=== PATIENT | female | born 1945 | race Caucasian/White ===

== ENCOUNTER 2021-08-16 08:51 | Outpatient (CLI) | payer OTHER, SELFPAY ==
--- NOTE | ~2021-08-16 | PE_ITS ---
EXAMINATION: PET skull to mid thigh DATE: 08/16/2021 11:00 INDICATION: Solitary pulmonary nodule TECHNIQUE: Blood glucose level was 115 mg/dL. 7.74 mCi of 18-fluorodeoxyglucose (18-FDG) was administ ered i.v. Low dose computed tomography (CT) images were acquired from the base of the brain to the pr oximal thighs for attenuation correction and anatomic localization. Positron emission tomography (PET ) images were acquired in the same distribution beginning 75 minutes after injection. Images includin g fused PET/CT images were reconstructed in axial, coronal, and sagittal planes. Automated exposure c ontrol technique was employed. The dose-length product was 684.25mGy-cm. COMPARISON: None FINDINGS: Head/neck: There is symmetric increased activity in the oral cavity, palatine tonsils, paraspinal musculature at the craniocervical junction, laryngeal muscles and ocular muscles without CT correlate, likely physi ologic. No pathologically enlarged cervical lymphadenopathy or suspicious foci of increased FDG uptak e in the visualized head or neck. Atherosclerotic calcification is at the bilateral carotid bulbs. Chest: Respiratory motion and mild dependent atelectasis in the bilateral lower lobes. There is an approxima tely 1 cm calcified right lower lobe nodule consistent with old granulomatous disease. No other suspi cious pulmonary nodules, pneumonia or pleural effusion. Heart size is normal. Atherosclerotic coronar y artery calcification. No pericardial effusion. Thoracic aorta is normal in caliber. No pathological ly enlarged or FDG avid thoracic lymphadenopathy. Diffuse mild increased synovial FDG uptake at the b ilateral glenohumeral joints without radiologic correlate which is likely physiologic. Moderate uptak e throughout the bilateral infraspinatus muscles and mild uptake involving additional musculature in the bilateral arms and hands also without radiologic correlate and likely physiologic. Abdomen/pelvis/proximal thighs: Physiologic renal accumulation and excretion of FDG activity in the kidneys, bladder and along portio ns of ureters. Multiple small splenic calcifications and single hepatic calcification consistent with old granulomatous disease. Normal degree and heterogenous pattern of increased uptake throughout the liver without radiologic correlate or dominant FDG avid lesion. Small calcified gallstone in the dep endent aspect of the otherwise normal gallbladder. The pancreas and right adrenal gland are normal. 1 2 mm low-attenuation left adrenal nodule without increased FDG uptake consistent with an adenoma. Pos toperative change of prior right hemicolectomy with right lower quadrant ileocolic anastomosis. Moder ate uptake scattered throughout the bowels without radiologic correlate, also likely physiologic. The uterus is not identified and has likely been surgically resected. Mild uptake overlying the bilatera l greater trochanters consistent with mild trochanteric bursitis. No other abnormal foci of increased FDG uptake or pathologically enlarged lymphadenopathy in the abdomen, pelvis or proximal thighs. Musculoskeletal: Old healed proximal left femoral fracture with antegrade intramedullary rhina and femoral neck compress ion screw fixation. 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 Severe lower cervical and lumbosacral spondylosis with moderate spondylosis of the intervening thoracic and lumbar spine. No aguilera spicious lytic, blastic or FDG avid bone lesions. IMPRESSION: 1. 1 cm calcified right lower lobe nodule consistent with old granulomatous disease. No other pulmona ry nodules identified or lesions suspicious for metastatic disease 2. Cholelithiasis. Reviewed, dictated and finalized at location B. Electr
[2021-08-16 09:22] LABS: Glucose Point of Care 115 mg/dl (65-105)
== END 2021-08-16 08:52 | disposition home or self-care (01) ==
PROVIDERS: PCP Internal Medicine; Visit Provider Internal Medicine
DX: R91.1 Solitary pulmonary nodule (principal); K80.20 Calculus of gallbladder without cholecystitis without obstruction
CPT/HCPCS: 78815; A9552

== ENCOUNTER 2023-05-01 11:56 | Outpatient (CLI) | payer OTHER, SELFPAY ==
--- NOTE | ~2023-05-01 | XR_ITS ---
Lumbosacral Spine: AP and lateral views, with neutral, flexion, extension positioning Clinical History: Pain Findings: The normal lordotic curve is maintained. Severe compression fracture deformity of L1 presen t. No instability evident on flexion or extension. There is advanced degenerative disc narrowing at L 5-S1. The remaining intervertebral disc spaces are preserved. Moderate facet arthropathy present thro ughout the lumbar spine. The sacroiliac joints are normally outlined. Impression: Severe compression fracture deformity of L1. This is new since 06/10/2022. Reviewed, dictated and finalized at location M. ICULTURAL SERVICES SUPERVISOR Impression: Severe compression fracture deformity of L1. This is new since 06/10/2022.
== END 2023-05-01 11:57 | disposition home or self-care (01) ==
LOC: ANHIMG 11:58
PROVIDERS: PCP Internal Medicine; Visit Provider Neurological Surgery
DX: S32.010A Wedge compression fracture of first lumbar vertebra, initial encounter for closed fracture (principal); X58.XXXA Exposure to other specified factors, initial encounter
CPT/HCPCS: 72110

== ENCOUNTER 2023-08-26 08:54 | Outpatient (CLI) | payer OTHER, SELFPAY ==
--- NOTE | ~2023-08-26 | PE_ITS ---
EXAMINATION: PET skull to mid thigh DATE: 08/26/2023 10:45 INDICATION: Squamous cell carcinoma TECHNIQUE: Blood glucose level was 93 mg/dL. 10.891 mCi of 18-fluorodeoxyglucose (18-FDG) was adminis tered i.v. Low dose computed tomography (CT) images were acquired from the base of the brain to the p roximal thighs for attenuation correction and anatomic localization. Positron emission tomography (PE T) images were acquired in the same distribution beginning 54 minutes after injection. Images includi ng fused PET/CT images were reconstructed in axial, coronal, and sagittal planes. Automated exposure control technique was employed. The dose-length product was 802.40mGy-cm. COMPARISON: 08/16/2021 and 06/10/2022 FINDINGS: Head/neck: Small focus of mild increased uptake with maximal SUV of 4.7 associated with a new periapical lucency surrounding the single remaining tooth at the left mandible. There is otherwise relatively symmetric increased activity in the oral cavity, palatine tonsils, laryngeal muscles and ocular muscles withou t CT correlate, likely physiologic. Prominent atherosclerotic calcification is at the bilateral carot id bulbs. No pathologically enlarged cervical lymphadenopathy or suspicious foci of increased FDG upt roberto in the visualized head or neck. Chest: Postoperative change of interval right lower lobectomy. Bandlike consolidation along a linear suture line which is without significant increased FDG uptake with maximal SUV of 2.3 most likely residual p ostoperative scarring. Ill-defined ground glass opacity in the anterior segment of the right upper lo be along the minor fissure also without significant increased FDG uptake with maximal SUV of 2.1 whic h appears relatively linear and reconstructed sagittal and coronal images and favor discoid atelectas is over pneumonia or other inflammatory process. Mild dependent atelectasis in the left lower lobe. N o FDG avid pulmonary nodules or pleural effusion. Heart size normal. Atherosclerotic coronary artery calcifications. No pericardial effusion. Thoracic aorta is normal in caliber. There is diffuse mild likely physiologic uptake along the normal-appearin g esophagus. No pathologically enlarged or FDG avid thoracic lymphadenopathy. Mild likely synovial u ptake about the bilateral glenohumeral and acromioclavicular joints as well as at the right sternocla vicular joint. There is also mild uptake at the bilateral distal gluteus medius minimus tendons. Ther e are old fracture deformities of the anterior right second and third ribs with mild uptake associate d with a more recent-appearing healing fracture at the anterior right third rib. Old fracture deformi ty left humeral neck. Small focus of mild likely physiologic uptake at the right trapezius muscle wit hout radiologic correlate. Abdomen/pelvis/proximal thighs: Physiologic renal accumulation and excretion of FDG activity in the kidneys, bladder and along portio ns of ureters. Normal degree and heterogenous pattern of increased uptake throughout the liver withou t radiologic correlate or dominant FDG avid lesion. Scattered hepatic and splenic calcific lesions co nsistent with old granulomatous disease. Small calcified gallstone in the dependent aspect of the oth erwise normal-appearing gallbladder. The pancreas and bilateral adrenal glands are normal. Mild uptak e scattered throughout the bowels without radiologic correlate, also likely physiologic. Postoperativ e change of right hemicolectomy with ileocolic anastomosis in the right abdomen. The uterus is not id entified and has likely been surgically resected. Old healed internally fixed intertrochanteric fract ure the proximal left femur with antegrade intramedullary rhina and femoral neck compression screw fixa tion. There is mild likely physiologic muscular uptake in the lumbar paraspinal muscles and in the mu scles at the bilateral forearms and at the left hand. Chronic L1 bur
[2023-08-26 09:20] LABS: Glucose Point of Care 93 mg/dl (65-105)
== END 2023-08-26 08:55 | disposition home or self-care (01) ==
PROVIDERS: PCP Internal Medicine; Visit Provider Internal Medicine Pulmonary Disease
DX: C34.90 Malignant neoplasm of unspecified part of unspecified bronchus or lung (principal)
CPT/HCPCS: 78815; A9552

== ENCOUNTER 2025-02-14 10:11 | Observation (INO) | payer OTHER, SELFPAY ==
--- NOTE | ~2025-02-14 | NM_ITS ---
EXAMINATION: NM bone scan whole body DATE: 02/16/2025 12:01 INDICATION: Painful right knee TECHNIQUE: 27.4 mCi Tc-99m MDP was administered intravenously. Delayed whole- body scintigrams were obtained. COMPARISON: Right knee radiographs dated 02/14/2025 and 05/01/2023 FINDINGS: There is increased uptake such with a T12 burst fracture as seen on the prior radiograph. Mild uptake such with old healed intertrochanteric fracture of the proximal left femur. Small focus of mild uptake along the superolateral aspect of the right hip joint which may be related to mild to moderate osteoarthritis of the right hip with chondrocalcinosis along the humeral head and labrum. Additional likely degenerative joint centered uptake at the left knee and at the bilateral ankles. Photopenic defect associated with a right total knee arthroplasty with prominent increased uptake underlying the lateral tibial plateau suspicious for loosening. There does appear to be corresponding increased lucency consistent with osteolysis at the bone cement interface underlying the lateral tibial plateau. Small focus of mild uptake at the superomedial rim of the left orbit. On prior PET/CT studies there appears to be a chronic sclerotic lesion which remained unchanged between 201905/06/2023 and which was without associated increased FDG uptake on the PET portion of the imaging favoring a benign etiology such as osteoma, fibrous dysplasia or hyperostosis frontalis. No other bone lesions suspicious for metastatic disease. IMPRESSION: 1. Right total knee arthroplasties with increased uptake underlying the lateral tibial plateau where there is increased lucency at the bone cement interface on prior radiographs consistent with osteolysis and loosening. 2. Mild uptake associated with a chronic T12 burst fracture. 3. Small focus of increased uptake at the superomedial left orbital rim region of a small sclerotic bone lesion which remained unchanged in the interval between 2021 and 2023 with no abnormal FDG uptake and favor a benign etiology such as osteoma, fibrous dysplasia or hyperostosis frontalis over metastatic disease. No other lesions suspicious for metastatic disease. Reviewed, dictated and finalized at location A. E ORTHO IMPRESSION: 1. Right total knee arthroplasties with increased uptake underlying the lateral tibial plateau where there is increased lucency at the bone cement interface o n prior radiographs consistent with osteolysis and loosening. 2. Mild uptake associated with a chronic T12 burst fracture. 3. Small focus of increased uptake at the superomedial left orbital rim region of a small sclerotic bone lesion which remained unchanged in the interval betwe en 2021 and 2023 with no abnormal FDG uptake and favor a benign etiology such a s osteoma, fibrous dysplasia or hyperostosis frontalis over metastatic disease. No other lesions suspicious for metastatic disease.
--- NOTE | ~2025-02-14 | XR_ITS ---
EXAMINATION: XR hip RT 2V w AP pelvis, 02/15/2025 10:00 HOSPITAL MEDICINE DIRECTOR HISTORY: NO RECENT TRAUMA/UNABLE TO WALK COMPARISON: No comparisons available. Findings: Fixation left femur, the hardware is intact, no acute fracture. Severe degenerative changes. Soft tissues unremarkable. Impression: No acute fracture or malalignment. Reviewed, dictated and finalized at location P. ITAL MEDICINE DIRECTOR Impression: No acute fracture or malalignment.
--- NOTE | ~2025-02-14 | XR_ITS ---
EXAMINATION: XR knee RT 3V, 02/14/2025 13:55 WORKSITE WELLNESS PRACTITIONER HISTORY: knee pain, atraumatic COMPARISON: No comparisons available. Findings: No acute fracture or malalignment. Arthroplasty intact Soft tissues unremarkable. Impression: No acute fracture or malalignment. Reviewed, dictated and finalized at location P. SITE WELLNESS PRACTITIONER Impression: No acute fracture or malalignment.
--- NOTE | ~2025-02-14 | US_ITS ---
EXAMINATION: US knee asp inj w image RT DATE: 02/16/2025 16:18 INDICATION: Right knee pain TECHNIQUE: The procedure including the risks and benefits was discussed with the patient. Risks discussed included bleeding and infection. The patient understood the risks and agreed to proceed. The skin overlying the suprapatellar pouch of the right knee was prepped and draped in usual sterile fashion. Anesthetic was administered with 1% lidocaine subcutaneously. A 22 gauge spinal needle was advanced under continuous ultrasound observation to what appear to be a potential trace amount of fluid at 2 separate locations of bony cephalad portion of the femoral component of the knee arthroplasty. No fluid was able to be aspirated. The needle was removed and the entry site was cleaned and dressed. Post procedure ultrasound demonstrated no hemorrhage. FINDINGS: Ultrasound images demonstrate needle tip position within 2 separate small anechoic regions along the femoral component of a right total knee arthroplasty. Attempted aspiration yielded no fluid suggesting the regions V contained synovium with no joint effusion. IMPRESSION: 1. No evident joint effusion with unsuccessful attempt at aspiration at 2 separate sites of potential trace amount of fluid. Reviewed, dictated and finalized at location A. NCE AND OPERATIONS OFFICER IMPRESSION: 1. No evident joint effusion with unsuccessful attempt at aspiration at 2 separ ate sites of potential trace amount of fluid.
[2025-02-14 10:13] VITALS: BP 181/71; PULSE 72; RESP 16; TEMP 36.4; O2SAT 100
--- OUTSIDE RECORDS SUMMARY | 2025-02-14 11:24 | XMS_ITS | Clinical Summary ---
Author Organization [facility] Zoltan baldwin [facility] Address [address] [place] [address] [place] [address] Care Team Providers Care Office Machine Installer Name Role Phone Unavailable Primary Care Provider Unavailabl e Allergies No known active allergies Medications denosumab (Prolia) 60 mg/mL Syringe inject 1ml subcutaneously every 6 months 1 mL 1 2 Active Social History Tobacco Use Types Packs/Day Years Used Date Smoking Tobacco: Never Assessed Comments Unknown Sex and Gender Information Value Date Recorded Sex Assigned at Not on file Legal Sex Female 1:38 PM CDT Gender Identity Not on file Sexual Orientation Not on file Plan of Treatment Health Maintenance Due Date Last Done Comments DTAP/TDAP/TD VACCINES (1 - Tdap) 05/25/1962 PNEUMOCOCCAL VACCINE 50+ YEARS (1 of 1 - PCV) 05/25/18 94 ZOSTER VACCINE (1 of 2) 05/25/1993 OSTEOPOROSIS SCREENING 05/25/2008 RSV VACCINE (60+ or ) (1 - 1-dose 75+ series) 05/25/2018 INFLUENZA VACCINE (#1) 2024 Insurance RX [facility] [employer]
--- OUTSIDE RECORDS SUMMARY | 2025-02-14 11:24 | XMS_ITS | Clinical Summary ---
Author Organization [facility] Address [address] [place] [id number] Care Team Providers Care Drywall Finisher Foreman Name Role Phone Perico Rhodes MD Primary Care Provider [phone] Sincere Martinez MD Unavailable [phone] Chi Cassidy MD Unavailable [phone] Luther Arshad MD Unavailable Allergies Active Allergy Reactions Criticality Noted Date Comments Sulfa (Sulfonamide Antibiotics) Unknown 11/2019 Medications simvastatin (ZOCOR) 40 mg tablet TK 1 T PO QD 0 Active oxybutynin XL (DITROPAN-XL) 10 mg 24 hr tablet TK 1 T PO QD 0 Active metFORMIN XR (GLUCOPHAGE XR) 500 mg 24 hr tablet TK 1 T PO BID B MEALS 0 Active hydroCHLOROthia zide (MICROZIDE) 12.5 mg capsule TK ONE C PO QAM 0 Active aspirin 81 mg enteric coated tablet Take 81 mg by mouth daily Active travoprost (TRAVATAN Z) 0.004 % drops 1 drop Active timolol (TIMOPTIC) 0.5 % ophthalmic solution 1 drop 2 (two) times a day Active Trelegy Ellipta 100-62.5-25 mcg inhaler INHALE 1 PUFF BY MOUTH EVERY DAY 1 Active denosumab (Prolia) 60 mg/mL syringe Prolia 60 mg/mL subcutaneous syringe Active Active Problems Problem Noted Date Diagnosed Date Iron deficiency 10/03/2020 Iron deficiency anemia 09/28/2020 Osteoarthritis of knee 09/28/2019 Closed Colles' fracture 09/28/2019 Closed intertrochanteric fracture 09/28/2019 Coronary arteriosclerosis 09/28/2019 Encounter for orthopedic follow-up care 09/28/19 20 Fracture of forearm 09/28/2019 Hyperlipidemia 09/28/2019 Osteoporosis 09/28/2019 H/O screening mammography 09/28/2019 Pneumococcal vaccination given 09/28/2019 Vitamin D deficiency 09/28/2019 Sprain of ankle 09/28/2019 Anemia 05/18/2019 Solitary pulmonary nodule 04/07/2019 Pulmonary emphysema 06/03/2018 Peripheral arterial occlusive disease 12/31/2017 Overactive bladder 11/06/2017 Other chronic pain 01/08/2017 Pain in left hip 01/08/2017 Pain in right knee 01/08/2017 Hypercalcemia 09/24/2016 Hyperglycemia 09/24/2016 Encounter for screening colonoscopy 09/24/2016 Essential hypertension 06/06/2016 Malignant neoplasm of colon 01/05/2015 Cancer Staging:Clinical stage from 04/01/2020:Stage IIA(T3, N0, M0) - Signed by Chi Cassidy MD on 04/01/2020 Immunizations Immunization Administration Dates Next Due DTaP 08/02/2008 Influenza, Quadrivalent, Hig h Dose, Preservative Free, Intrr 12/22/2020 Influenza, Quadrivalent, Spl it, Intramuscular 01/11/2016 Influenza, Trivalent, High D ose, Split, Preservative Free, Intramuscular 12/08/2019,01/12/2019,01/01/2018,01/30,01/14/2012,01/09/2011,12/29/2009 Influenza, Trivalent, IM (MDV) 12/23/2014 Influenza, Trivalent, Preser vative Free, Intramuscular 02/17/2014,12/23/2012 Moderna SARS-CoV-2 Monovalen t Vaccination (12+ YRS) 01/22/2021,06/06/2020,05/09/2020 Pneumococcal Conjugate PCV 13 01/23/2016 Pneumococcal Polysaccharide PPV23 09/13/2010 Surgical History Surgery Date Site/Laterality Comments HYSTERECTOMY COLON SURGERY COLONOSCOPY 09/24/2016 CATARACT EXTRACTION TOTAL KNEE ARTHROPLASTY 07/12/2020 Right Medical History Medical History Date Comments Hypertension Hypercholesteremia Anemia Cancer (HCC) Iron deficiency anemia 09/28/2020 Family History Medical History Relation Name Comments Stroke Father Heart attack Mother Relation Name Status Comments Father Mother Social History Tobacco Use Types Packs/Day Years Used Date Smoking Tobacco: Former Cigarettes 0.1 50 1 960 - 2009 Smokeless Tobacco: Never Comments:Smokes once a month 03/30/20 or less Alcohol Use Standard Drinks/Week Comments Yes 0 (1 standard drink = 0.6 oz pur e alcohol) AUDIT-C Answer Date Recorded Q1: How often do you have a drink containing alc ohol? 2-3 times a week 03/29/2021 Q2: How many drinks containi ng alcohol do you have on a typical day when you are drinking? 1 or 2 03/29/2021 Q3: How often do you have si x or more drinks on one occasion? Never 03/29/2021 Personal Safety Answer Date Recorded Getting School Help Needed Not on file 05/26 Comments Unknown Sex and Gender Information Value Date Recorded Sex Assigned at Not on file Legal Sex Female 12:56 PM DEWER Gender Identity Not on file Sexual Orientation Not on file Last Filed Vital Signs Vital Sign Reading Time Taken Comments Blood Pressure 116/74 03/29/2021 11:17 AM DEWER Pulse 76 03/29/2021 11:17 AM DEWER Temperature 37 C (98.6 F) 03/29/2021 11:17 AM DEWER Respiratory Rate 16 03/29/2021 11:17 AM DEWER Oxygen Saturation 98% 03/29/2021 11:17 AM DEWER Inhaled Oxygen Concentration - - Weight 77.1 kg (170 lb) 03/29/2021 11:17 AM DEWER Height 170.2 cm (5' 7) 03/29/2021 11:17 AM DEWER Body Mass Index 26.63 03/29/2021 11:17 AM DEWER Plan of Treatment Not on file Insurance [facility] [id number] [place] [address] [facility] [id number] Care Teams Drywall Finisher Foreman Relationship Specialty Start Date End Date Perico Rhodes MD PCP - General Internal Medicine 05/12/19 Sincere Martinez MD Consulting Physician Gastroenterology 05/24/19 Chi Cassidy MD Medical Oncologist/Hematologis t Hematology and Oncology 06/16/19 Luther Arshad MD Consulting Physician Cardiovascular Disease 03/30/20
--- OUTSIDE RECORDS SUMMARY | 2025-02-14 11:24 | XMS_ITS | Clinical Summary ---
Author Organization [facility] Address [address] [place] [address] Care Team Providers Care Seam Closer Name Role Phone Perico Rhodes MD Primary Care Provider [phone] [facility],non-owned Affiliates and Associated Physician Practices is amultiple site organization consisting of ambulatory clinics and hospital sitesin [place], [place], [place]. This disclosure is being madepursuant to the Care Everywhere program and may not contain all information available regarding this patient. Last updated 17.[facility] Allergies Active Allergy Reactions Criticality Noted Date Comments Sulfa Drugs Unknown 05/24/2019 Medications * Be aware that medications may not be up to date on this document. Alwaysverify current medications with the patient. simvastatin (ZOCOR) 40 MG tablet Take 1 (one) tablet by mouth at bedtime 0 09/05/2016 Active timolol maleate (Timoptic) 0.5 % ophthalmic solution Instill 1 (one) drop into both eyes 2 times daily Active oxyBUTYnin CR 24hr (Ditropan-XL) 10 MG tablet Take 1 (one) tablet by mouth once daily 07/27/2022 Active metFORMIN ER 24hr (Glucophage XR) 500 MG tablet Take 1 (one) tablet by mouth every morning 10/07/2021 Active Breo Ellipta 100-25 MCG/ACT inhaler Inhale 1 (one) puff by mouth once daily 06/12/2022 Active aspirin EC (Ecotrin) 81 MG tablet Take 1 (one) tablet by mouth once daily Active albuterol HFA (Proventil; Ventolin; Proair) 108 (90 Base) MCG/ACT inhaler Take 1 (one) puff by mouth every 4 hours as needed 06/12/2022 Active Cholecalciferol (Vitamin D3) 1.25 MG (00190 UT) TABS Take 1.25 tablets by mouth once daily Active travoprost, EBONIE free, (Travatan Z) 0.004 % ophthalmic solution Instill 1 (one) drop into both eyes at bedtime Active Active Problems Problem Noted Date Diagnosed Date Pulmonary nodule 08/28/2022 Pain in right knee 01/08/2017 Other chronic pain 01/08/2017 Pain in left hip 01/08/2017 Immunizations Immunization Administration Dates Next Due INFLUENZA VACCINE, HIGH-DOSE , QUADR. (FLUZONE HIGH-DOSE QUADRIVALENT; 65Y+), 0.7 ML (HD-IIV4) 12/08/2019 Social History Tobacco Use Types Packs/Day Years Used Date Smoking Tobacco: Some Days Cigarettes 2 50 Smokeless Tobacco: Former Tobacco Cessation:Ready to Q uit: Not Asked; Counseling Given: Not Answered Alcohol Use Standard Drinks/Week Comments Yes 0 (1 standard drink = 0.6 oz pur e alcohol) 2 times per week AUDIT-C Answer Date Recorded Q1: How often do you have a drink containing alcohol? Never 09/03/2022 Q2: How many drinks containi ng alcohol do you have on a typical day when you are drinking? Patient does not drink Frequency of Binge Drinking Not on file 08/16 Overall Financial Resource Strain (CARDIA) Answe r Date Recorded How hard is it for you to pa y for the very basics like food, housing, medical care, and heating? Not hard at all 09/03/2022 [facility] [place] [facility] - Occupational Stress Questionnaire Answer Date Recorded Do you feel stress - tense, restless, nervous, or anxious, or unable to sleep at night because your mind is troubled all the time - these days? Not at all 09/03/2022 Hunger Vital Sign Answer Date Recorded Within the past 12 months, y ou worried that your food would run out before you got the money to buy more. Never true 09/04/19 Within the past 12 months, t he food you bought just didn't last and you didn't have money to get more. Never true 09/03/2022 PRAPARE - Transportation Answer Date Re corded In the past 12 months, has l ack of transportation kept you from medical appointments or from getting medications? No 08/16 In the past 12 months, has l ack of transportation kept you from meetings, work, or from getting things needed for daily living? No 09/03/2022 Housing Stability Vital Sign Answer Aren e Recorded In the last 12 months, was t here a time when you were not able to pay the mortgage or rent on time? No 09/03/2022 Number of Places Lived in the Last Year Not on f ile 09/03/2022 In the last 12 months, was t here a time when you did not have a steady place to sleep or slept in a fci (including now)? No 09/03/2022 Comments No Sex and Gender Information Value Date Recorded Sex Assigned at Not on file Legal Sex Female 5:22 PM BLINDSTITCH HEMMER Gender Identity Not on file Sexual Orientation Not on file Last Filed Vital Signs Vital Sign Reading Time Taken Comments Blood Pressure 144/83 11/07/2022 9:57 AM CDT Pulse 76 11/07/2022 9:57 AM CDT Temperature 37 C (98.6 F) 11/07/2022 9:57 AM CDT Respiratory Rate 18 09/05/2022 12:54 PM CDT Oxygen Saturation 98% 11/07/2022 9:57 AM CDT Inhaled Oxygen Concentration - - Weight 69.4 kg (153 lb) 11/07/2022 9:57 AM CDT Height 167.6 cm (5' 6) 11/07/2022 9:57 AM CDT Body Mass Index 24.69 11/07/2022 9:57 AM CDT Plan of Treatment Health Maintenance Due Date Last Done Comments BONE DENSITY TESTING 1943 DTAP/TDAP/TD VACCINES (1 - Tdap) 05/25/1962 PNEUMOCOCCAL VACCINE 50+ (1 of 2 - PCV) 05/25/1962 ZOSTER VACCINE (1 of 2) 05/25/1993 Respiratory Syncytial Virus (RSV) Vaccine Pt: or over 60 yrs (1 - 1-dose 75+ series) 05/25/2018 DEPRESSION SCREENING 03/17/2024 COVID-19 VACCINE ( - season) 2024 08/06/2021, 01/22/2021, 06/06/2020, Additional history exists INFLUENZA VACCINE (#1) 2024 , 01/12/2019, 01/01/2018, Additional history exists HEPATITIS B VACCINE Aged Out No longe r eligible based on patient's age to complete this topic HIB VACCINE Aged Out No longer eligi ble based on patient's age to complete this topic HPV VACCINE Aged Out No longer eligi ble based on patient's age to complete this topic MENINGOCOCCAL (Group B) VACCINE SHARED DECISION-MAKING Aged Out No longer eligible based on patient's age to complete this topic MENINGOCOCCAL GROUPS A/C/Y/W VACCINE Aged Out No longer eligible based on patient's age to complete this topic Insurance [facility] Address: [facility] [id number] [place] [address] Advance Directives * Full Code (Latest Code Status on File) Date Activated Date Inactivated Comments 09/03/2022 7:12 PM 09/05/2022 2:58 PM Care Teams Seam Closer Relationship Specialty Start Date End Date Perico Rhodes MD [address] [facility] [address] [place] [address] PCP - General 09/18/16
--- OUTSIDE RECORDS SUMMARY | 2025-02-14 11:24 | XMS_ITS ---
Author Organization [facility] Address [address] [place] [id number] Care Team Providers Care Race Car Driver Name Role Phone Perico Rhodes MD Primary Care Provider Sincere Martinez MD Unavailable [phone] Chi Cassidy MD Unavailable [phone] Luther Arshad MD Unavailable Active Problems Problem Noted Date Diagnosed Date Iron deficiency 10/03/2020 Iron deficiency anemia 09/28/2020 Osteoarthritis of knee 09/28/2019 Closed Colles' fracture 09/28/2019 Closed intertrochanteric fracture 09/28/2019 Coronary arteriosclerosis 09/28/2019 Encounter for orthopedic follow-up care 09/28/19 Fracture of forearm 09/28/2019 Hyperlipidemia 09/28/2019 Osteoporosis [...] Signed by Chi Cassidy MD on 04/01/2020 Current Treatment and Therapy Plans No current plan information found. Past Treatment and Therapy Plans
--- OUTSIDE RECORDS SUMMARY | 2025-02-14 11:24 | XMS_ITS | Encounter Summary ---
Author Organization [facility] Address [address] [place] [address] Phone Care Team Providers Care Supervisor Fabrication Name Role Phone Perico Rhodes MD Primary Care Provider Sincere Martinez MD Unavailable [phone] Chi Cassidy MD Unavailable [phone] Luther Arshad MD Unavailable Encounter Details Date Type Department Care Team (Latest Contact Info) Description 05/23/2022 Orders Only [facility] Scanning, Provider Social History Tobacco Use Types Packs/Day Years Used Date Smoking Tobacco: Former Cigarettes 0.1 50 1 960 - 2010 Smokeless Tobacco: Never Comments:Smokes once a month [...] more drinks on one occasion? Never 03/29/2021 Comments Unknown Sex and Gender Information Value Date Recorded Sex Assigned at Not on file Legal Sex Female 12:56 PM CONCIERGE MANAGER Gender Identity Not on file Sexual Orientation Not on file documented as of this encounter Plan of Treatment Not on file documented as of this encounter Procedures Procedure Name Priority Date/Time Associated Diagnosis Comments SCAN - RADIOLOGY/IMAGING 05/23/2022 documented in this encounter Results * SCAN - RADIOLOGY/IMAGING (05/23/2022) Anatomical Region Laterality Modality Other us Provider Scanning Final Result documented in this encounter Visit Diagnoses Not on filedocumented in this encounter Care Teams Supervisor Fabrication Relationship Specialty Start Date End Date Perico Rhodes MD PCP - General Internal Medicine 05/12/19 Sincere Martinez MD Consulting Physician Gastroenterology 05/24/19 Chi Cassidy MD Medical Oncologist/Hematologis t Hematology and Oncology 06/16/19 Luther Arshad MD Consulting Physician Cardiovascular Disease 03/30/20 documented as of this encounter
--- OUTSIDE RECORDS SUMMARY | 2025-02-14 11:25 | XMS_ITS | Encounter Summary ---
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 Gender Identity Not on file Sexual Orientation Not on file documented as of this encounter Plan of Treatment Not on file documented as of this encounter Procedures Procedure Name Priority Date/Time Associated Diagnosis Comments SCAN - RADIOLOGY/IMAGING 06/10/2022 documented in this encounter Results * SCAN - RADIOLOGY/IMAGING (06/10/2022) Anatomical Region Laterality Modality Other us Provider Scanning Final Result documented in this encounter Visit Diagnoses Not on filedocumented in this encounter Care Teams Home Service Technician Relationship Specialty Start Date End Date Perico Rhodes MD PCP - General Internal Medicine 05/12/19 Sincere Martinez MD Consulting Physician Gastroenterology 05/24/19 Chi Cassidy MD Medical Oncologist/Hematologis t Hematology and Oncology 06/16/19 Luther Arshad MD Consulting Physician Cardiovascular Disease 03/30/20 documented as of this encounter
--- OUTSIDE RECORDS SUMMARY | 2025-02-14 11:25 | XMS_ITS | Encounter Summary ---
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 Gender Identity Not on file Sexual Orientation Not on file documented as of this encounter Plan of Treatment Not on file documented as of this encounter Procedures Procedure Name Priority Date/Time Associated Diagnosis Comments SCAN - LABS 06/12/2022 documented in this encounter Results * SCAN - LABS (06/12/2022) us Provider Scanning Final Result documented in this encounter Visit Diagnoses Not on filedocumented in this encounter Care Teams Mill Supervisor Relationship Specialty Start Date End Date Perico Rhodes MD PCP - General Internal Medicine 05/12/19 Sincere Martinez MD Consulting Physician Gastroenterology 05/24/19 Chi Cassidy MD Medical Oncologist/Hematologis t Hematology and Oncology 06/16/19 Luther Arshad MD Consulting Physician Cardiovascular Disease 03/30/20 documented as of this encounter
[2025-02-14 12:43] LABS: Hematocrit 27.8 % (37.0-47.0); Hemoglobin 8.2 g/dL (12.0-15.0); Immature Granulocyte Percent A 0.7 % (0-0.5); Lymphocytes Absolute Auto 0.62 K/mm3 (0.9-3.2); Mean Corpuscular HGB Conc 29.5 g/dl (32-36); Mean Corpuscular Hemoglobin 24.6 pg (26-34); Mean Corpuscular Volume 83.2 fl (80-100); Nucleated Red Blood Cells Absolute Auto 0.000 K/mm3 (0.0-0.012); Nucleated Red Blood Cells Perc 0.0 % (0.0-0.2); Platelet Count Result 407 k/mm3 (150-375); Red Blood Count 3.34 M/mm3 (4.2-5.4); White Blood Count 8.1 K/mm3 (4.5-10.0)
[2025-02-14 12:58] LABS: Anion Gap 5 mmol/L (4-12); Blood Urea Nitrogen 23 mg/dL (7-17); Calcium 9.4 mg/dL (8.4-10.2); Carbon Dioxide 25 mmol/L (22-30); Chloride 107 mmol/L (98-107); Estimated CRCL calculation 41 ml/min; Estimated Glomerular Filt Rate 59; Glucose 140 mg/dL (65-110); Potassium 4.4 mmol/L (3.4-5.0); Sodium 137 mmol/L (137-145)
--- OUTSIDE RECORDS SUMMARY | 2025-02-14 13:22 | XMS_ITS | Clinical Summary ---
Author Organization [facility] [employer] Address [address] [place] [address] Care Team Providers Care Antique Dealer Name Role Phone Perico Rhodes MD Primary Care Provider [phone] Source Comments [facility] [employer],non-owned Affiliates and Associated Physician Practices is amultiple site organization consisting of ambulatory clinics and hospital sitesin [place], [place], [place] and [place]. This disclosure is being madepursuant to the Care Everywhere program and may not contain all information available regarding this patient. Last updated 17.[facility] [employer] Allergies Active Allergy Reactions Criticality Noted Date [...] 06/12/2022 Active Cholecalciferol (Vitamin D3) 1.25 MG (04402 UT) TABS Take 1.25 tablets by mouth [...] and heating? Not hard at all 09/03/2022 [facility] [place] of Occupat ional Health - Occupational Stress [...] place to sleep or slept in a skilled nursing (including now)? 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
--- OUTSIDE RECORDS SUMMARY | 2025-02-14 13:22 | XMS_ITS | Encounter Summary ---
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
--- OUTSIDE RECORDS SUMMARY | 2025-02-14 13:22 | XMS_ITS | Encounter Summary ---
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
--- OUTSIDE RECORDS SUMMARY | 2025-02-14 13:22 | XMS_ITS | Clinical Summary ---
Author Organization [facility] [employer] [facility] Address [address] [place] [address] [place] [address] Care Team Providers Care Gasoline Engine Assembler Name Role Phone Unavailable Primary Care Provider [...]
--- OUTSIDE RECORDS SUMMARY | 2025-02-14 13:22 | XMS_ITS | Clinical Summary ---
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 Gender Identity Not on file Sexual Orientation Not on file Last Filed Vital Signs Vital Sign Reading Time Taken Comments Blood Pressure 116/74 03/29/2021 11:17 AM WASTE PICKER Pulse 76 03/29/2021 11:17 AM WASTE PICKER Temperature 37 C (98.6 F) 03/29/2021 11:17 AM WASTE PICKER Respiratory Rate 16 03/29/2021 11:17 AM WASTE PICKER Oxygen Saturation 98% 03/29/2021 11:17 AM WASTE PICKER Inhaled Oxygen Concentration - - Weight 77.1 kg (170 lb) 03/29/2021 11:17 AM WASTE PICKER Height 170.2 cm (5' 7) 03/29/2021 11:17 AM WASTE PICKER Body Mass Index 26.63 03/29/2021 11:17 AM WASTE PICKER Plan of Treatment Not on file Insurance [facility] [address] [place] [address] [facility] [id number] Care Teams Memorial Adviser Relationship Specialty Start Date End Date Perico Rhodes MD PCP - General Internal Medicine 05/12/19 Sincere Martinez MD Consulting Physician Gastroenterology 05/24/19 Chi Cassidy MD Medical Oncologist/Hematologis t Hematology and Oncology 06/16/19 Luther Arshad MD Consulting Physician Cardiovascular Disease 03/30/20
--- OUTSIDE RECORDS SUMMARY | 2025-02-14 13:22 | XMS_ITS ---
Author Organization [facility] Address [address] [place] [address] Care Team Providers Care Forensic Medical Examiner Name Role Phone Perico Rhodes MD Primary Care Provider Sincere Martinez MD Unavailable [phone] Chi Cassidy MD Unavailable [phone] Luther Arshad MD Unavailable Active Problems Problem [...]
--- OUTSIDE RECORDS SUMMARY | 2025-02-14 13:22 | XMS_ITS | Encounter Summary ---
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
[2025-02-14 13:36] LABS: Anisocytosis 1+; Hypochromasia 2+; Polychromasia Occasional
[2025-02-14 13:37] LABS: Ovalocytes Occasional; Schistocytes None Seen; Stomatocytes Occasional
[2025-02-14] MEDS: KETOROLAC 15 MG/ML VIAL (*BKC) 10 MG IV PUSH (13:51)
--- NOTE | 2025-02-14 14:46 | PC.NURSE ---
PT at bedside for evaluation.
--- NOTE | 2025-02-14 15:34 | ED_ITS ---
HPI - Extremity Problem General Chief complaint: Extremity Problem,Nontraumatic Stated complaint: right knee pain Time Seen by Provider: 02/14/25 11:43 History of Present Illness HPI Narrative: Patient presenting here with right knee pain, started about 10 days ago, she does have a knee surgery by Dr. Jalloh years ago, went to an outside ER and had a knee x-ray that was normal, with started on steroids, but still having pain with ambulation. She is at assisted living facility and cannot get around without help. Related Data Home Medications ?Medication ?Instructions ?Recorded ?Confirmed ?Last Taken ?Type aspirin 81 mg tablet,delayed 81 mg PO DAILY 02/27/23 Unknown History release simvastatin 40 mg tablet 40 mg PO DAILY 02/27/23 Unk nown History Allergies Allergy/AdvReac Type Severity Reaction Status Date / Time Sulfa (Sulfonamide Allergy Mild Unknown Verified 02/14/25 10:17 Antibiotics) Review of Systems 2 Review of Systems: All systems reviewed & are unremarkable except as noted in HPI and below PMFSH Past Medical History Medical History Nondisplaced intertrochanteric fracture of left femur, initial encounter for closed fracture Social History Social History (Updated 05/01/23 @ 11:12 by Yael Multani) Social History: Caffeine-daily Smoking status: Unknown if ever smoked Alcohol intake: current Alcohol use details: seldom Substance use: never Substance use type: does not use Lack of Transportation: No Lack of Food: Never True Current Housing: I Have Housing Concerned About Future Housing: No Difficulty Paying Gas/Electric Bills: No Difficulty Paying for Meds: No Currently Unemployed: No Education: Bachelor's Degree Difficulty w/ Childcare or Family Care: No Exam 2 Narrative: EXAMINATION OF ORGAN SYSTEMS/BODY AREAS: Constitutional: Vital signs per nursing GENERAL:[No acute distress, non-toxic appearing.] HEAD: Normal with no signs of head trauma. EYES: EOMI, conjunctiva normal ENT: Hearing grossly intact LUNGS: Nonlabored breathing. HEART: [Regular rate and rhythm] ABD: [Soft], [nontender to palpation] EXT: Normal range of motion SKIN: [No rashes or lesions.] NEURO: [Alert and oriented x 3. No gross focal sensory or strength deficits.] PSYCH: Normal affect Course Vital Signs Vital signs: Vital Signs Temperature 97.5 F L 02/14/25 10:13 Pulse Rate 72 02/14/25 10:13 Respiratory Rate 16 02/14/25 10:13 Blood Pressure 181/71 H 02/14/25 10:13 Pulse Oximetry 100 02/14/25 10:13 Oxygen Delivery Room Air 02/14/25 10:13 Temperature 97.5 F L 02/14/25 10:13 Pulse Rate 72 02/14/25 10:13 Respiratory Rate 16 02/14/25 10:13 Blood Pressure 181/71 H 02/14/25 10:13 Pulse Oximetry 100 02/14/25 10:13 Oxygen Delivery Room Air 02/14/25 10:13 MDM MDM Narrative Medical decision making narrative: Patient presents here with pain to her right knee, unable to walk on it without pain, unable to care for herself at her assisted living facility since she cannot get around. Discussed with respiratory care program director, PT OT evaluated her here and noted that she was unable to get around even with a walker. At this point I do feel she will need more help, respiratory care program director involved in helping to transfer her the detention facility side until she is better. Unfortunately she will need 2 people assist which is not available there. Discussed with hospitalist for admission here. Consult placed to her orthopedic surgeon Differential Diagnosis Differential Diagnosis: Arthritis, fracture; very unlikely DVT without swelling or pain to leg Lab Data 02/14/25 12:32 02/14/25 12:32 Labs: Lab Results 02/14/25 Range/Units 12:32 WBC 8.1 (4.5-10.0) K/mm3 RBC 3.34 L (4.2-5.4) M/mm3 Hgb 8.2 L (12.0-15.0) g/dL Hct 27.8 L (37.0-47.0) % MCV 83.2 (80-100) fl MCH 24.6 L (26-34) pg MCHC 29.5 L (32-36) g/dl RDW 14.6 H (11.5-14.5) % Plt Count 407 H (150-375) k/mm3 MPV 8.8 (7.4-10.4) fl Immature Gran % (Auto) 0.7 H (0-0.5) % Neut % (Auto) 89.7 H (45.5-73.1) % Lymph % (Auto) 7.7 L (18.3-44.2) % [place] % (Auto) 1.7 L (2.6-8.5) % Eos % (Auto) 0.0 (0-4.4) % Baso % (Auto) 0.2 (0.2-1.2) % Lymph # (Auto) 0.62 L (0.9-3.2) K/mm3 [place] # (Auto) 0.1 (0.1-0.6) K/mm3 Eos # (Auto) 0.0 (0-0.3) K/mm3 Baso # (Auto) 0.0 (0.0-0.1) K/mm3 Abs Immat Gran (auto) 0.06 H (0.00-0.031) K/mm3 Absolute Neuts (auto) 7.2 H (1.3-6.7) K/mm3 Absolute Nucleated RBC 0.000 (0.0-0.012) K/mm3 Band Neutrophils % Not Reportable Nucleated RBC % 0.0 (0.0-0.2) % Platelet Estimate Increased (Adequate) Polychromasia Occasional Hypochromasia 2+ Anisocytosis 1+ Ovalocytes Occasional Stomatocytes Occasional Schistocytes None seen Sodium 137 (137-145) mmol/L Potassium 4.4 (3.4-5.0) mmol/L Chloride 107 (98-107) mmol/L Carbon Dioxide 25 (22-30) mmol/L Anion Gap 5 (4-12) mmol/L BUN 23 H (7-17) mg/dL Creatinine 0.92 (0.7-1.0) mg/dL Estim Creat Clear Calc 41 ml/min Estimated GFR 59 (59 - ) Glucose 140 H (65-110) mg/dL Calcium 9.4 (8.4-10.2) mg/dL Imaging Data Radiologist's impression: ITS Impressions Knee X-Ray 02/14/25 14:17 Impression: No acute fracture or malalignment. Discharge Plan Discharge Clinical Impression: Acute knee pain Patient Disposition: Still a Patient Condition: Stable Patient Language: Cymro Prescriptions: No Action simvastatin 40 mg tablet 40 mg PO DAILY aspirin 81 mg tablet,delayed release (DR/EC) 81 mg PO DAILY oxybutynin chloride 10 mg tablet extended release 24hr 10 mg PO DAILY Qty: 90 1RF Follow-up/Referrals: Carmelo,Perico Olguin MD [Primary Care Provider, Unknown]
--- NOTE | 2025-02-14 17:32 | PCCCNOTE ---
1230: called to the ED to speak with pt regarding her returning to [facility]. She is unable to do her ADL's at this time without assistance. Call placed to Evelina at [facility] who said pt could come back with one assist if she was able to do that. Paperwork was filled out, PT evaluated pt and determined pt was 2 assist with multiple activities. She is unable to return there with those needs. They recommended pt be placed at SNF for therapy. ED physician notified and pt. will be admitted.
--- NOTE | 2025-02-14 19:27 | WPCEDHO ---
ED Hand Off Checklist All vitals saved:y IV Site documented:y All med administrations documented:y Triage Note Triage Note Pt to ED from her apartment at 02/14/25 10:13 [place] via EMS co R knee pain. Pt went to [place] 3 days ago and reports all the imaging was negative. Pt denies injury. Pt states she has had the pain for roughly 10 days. Allergies Sulfa (Sulfonamide Antibiotics) Allergy (Mild, Verified 02/14/25 10:17) Unknown Administered/Completed Medications Discontinued Medications Ketorolac Tromethamine (Ketorolac 15 Mg/Ml Vial (*Bk)) 10 mg IV PUSH ONCE ONE Stop: 02/14/25 11:55 Last Admin: 02/14/25 13:51 Dose: 10 mg Documented By: DRAKE Notes 02/14/25 17:32 Care Coordination Note by Mikayla Maldonado 0190: called to the ED to speak with pt regarding her returning to [facility]. She is unable to do her ADL's at this time without assistance. Call placed to Evelina at [facility] who said pt could come back with one assist if she was able to do that. Paperwork was filled out, PT evaluated pt and determined pt was 2 assist with multiple activities. She is unable to return there with those needs. They recommended pt be placed at SNF for therapy. ED physician notified and pt. will be admitted. Initialized on 02/14/25 17:32 - END OF NOTE 02/14/25 14:46 Nurse Note by Miryam Roth PT at bedside for evaluation. Initialized on 02/14/25 14:46 - END OF NOTE Last Vital Signs Temperature 97.5 F L 02/14/25 10:13 Pulse Rate 72 02/14/25 10:13 Respiratory Rate 16 02/14/25 10:13 Pulse Oximetry 100 02/14/25 10:13 Blood Pressure 181/71 H 02/14/25 10:13 Blood Pressure Mean 107 02/14/25 10:13 Oxygen Delivery Room Air 02/14/25 10:13 Weight 68.1 kg 02/14/25 10:13 Last Result - Abnormals Only RBC 3.34 M/mm3 (4.2-5.4) L 02/14/25 12:32 Hgb 8.2 g/dL (12.0-15.0) L 02/14/25 12:32 Hct 27.8 % (37.0-47.0) L 02/14/25 12:32 MCH 24.6 pg (26-34) L 02/14/25 12:32 MCHC 29.5 g/dl (32-36) L 02/14/25 12:32 RDW 14.6 % (11.5-14.5) H 02/14/25 12:32 Plt Count 407 k/mm3 (150-375) H 02/14/25 12:32 Immature Gran % (Auto) 0.7 % (0-0.5) H 02/14/25 12:32 Neut % (Auto) 89.7 % (45.5-73.1) H 02/14/25 12:32 Lymph % (Auto) 7.7 % (18.3-44.2) L 02/14/25 12:32 [place] % (Auto) 1.7 % (2.6-8.5) L 02/14/25 12:32 Lymph # (Auto) 0.62 K/mm3 (0.9-3.2) L 02/14/25 12:32 Abs Immat Gran (auto) 0.06 K/mm3 (0.00-0.031) H 02/14/25 12:32 Absolute Neuts (auto) 7.2 K/mm3 (1.3-6.7) H 02/14/25 12:32 BUN 23 mg/dL (7-17) H 02/14/25 12:32 Glucose 140 mg/dL (65-110) H 02/14/25 12:32 Most Recent Suicide Severity Rating Suicide Severity Rating NO RISK INDICATED 02/14/25 10:13
[2025-02-14 19:30] VITALS: BP 184/71; PULSE 75; RESP 17; O2SAT 93
--- NOTE | 2025-02-14 19:40 | PM.IMHP2 ---
H&P: HPI History of Present Illness Date/Time: 02/14/25 19:40 Chief Complaint: Right knee pain Narrative: 79-year-old female with a past medical history of total right knee replacement, left femur fracture, OAB, HTN, COPD, malignant tumor of lung, HLD, colon cancer s/p resection, glaucoma, osteoporosis, CAD s/p stent, L1 compression fracture after a fall presents to the ED on 02/14/2025 with complaints of right knee pain. Patient had a total right knee replacement with Dr. Jalloh but is unsure when this occurred. This acute right knee pain started about 5 days ago per patient. She states she went to [place] 3 days ago and states all imaging was negative. She describes the pain as a sharp stabbing pain any time she attempts to bear weight. No recent falls or trauma. The pain is not present while at rest. Patient lives at [facility]. PT and OT saw the patient in the ED and noted that she was unable to get around with a walker. In this condition, the patient is unable to return to [place] at this time as she requires a 2 person assist. Patient is A&O x4 but appears to get confused on her medical history and time frame. Patient was seeing pain management in early 2023 but was unable to tell me what for, so she just assumed it was for her right knee. Chart review reveals she was seeing them and prescribed [place] for L1 compression fracture that was not recommended for kyphoplasty. Patient is no longer seeing pain management as she felt the [place] was not helpful and was just resumed taking Tylenol. Patient has no other complaints. Initial vital signs 181/71, HR 72, respirations 16, afebrile and 100% on room air. Labs largely unremarkable with anemia noted. No previous labs available for comparison. Right knee x-ray reveals no acute fracture or malalignment. Review of Systems Review of Systems: All systems reviewed & are unremarkable except as noted in HPI and below PMFSH Past Medical History Medical History Nondisplaced intertrochanteric fracture of left femur, initial encounter for closed fracture Social History Social History (Updated 05/01/23 @ 11:12 by Yael Multani) Social History: Caffeine-daily Smoking packs per day: 1 Smoking cigarettes per day: 20.0 Years smoked: 40 Smoking pack-years: 40.00 Smoking status: Former smoker Tobacco type: cigarettes Second hand tobacco smoke exposure: No Alcohol intake: current Alcohol use details: seldom Substance use: never Substance use type: does not use Lack of Transportation: No Lack of Food: Never True Current Housing: I Have Housing Concerned About Future Housing: No Difficulty Paying Gas/Electric Bills: No Difficulty Paying for Meds: No Currently Unemployed: No Education: Bachelor's Degree Difficulty w/ Childcare or Family Care: No Spiritual care concerns: No Meds Home Medications and Allergies Home Medications ?Medication ?Instructions ?Recorded ?Confirmed ?Type oxybutynin chloride 10 mg 10 mg PO DAILY #90 tabs 01/27/23 02/14/25 Rx tablet,extended release 24 hr aspirin 81 mg tablet,delayed 81 mg PO DAILY 02/27/23 02/14/25 History release simvastatin 40 mg tablet 40 mg PO DAILY 02/27/23 02/14/25 History Allergies Allergy/AdvReac Type Severity Reaction Status Date / Time Sulfa (Sulfonamide Allergy Mild Unknown Verified 02/14/25 22:15 Antibiotics) Vital Signs Vital Signs - 24 hr 02/14/25 10:13 02/14/25 19:30 Temperature 97.5 F L Pulse Rate 72 75 Respiratory Rate 16 17 Blood Pressure 181/71 H 184/71 H Pulse Oximetry 100 93 Oxygen Delivery Room Air Exam Narrative: GENERAL: non-toxic appearing, in no acute distress. HEAD: Normocephalic, atraumatic. EYES: PERRLA. Conjunctivae clear. NOSE: Normal no drainage. THROAT: Pharynx clear, no exudate. NECK: Trachea midline. No adenopathy, no masses. RESPIRATORY: Airway patent, respirations nonlabored. CTA. CARDIOVASCULAR: Regular rate and rhythm BREASTS: Defer GASTROINTESTINAL: Abdomen is soft and nontender. No organomegaly. Bowel sounds normal in all quadrants. GENITOURINARY: Defer MUSCULOSKELETAL: Moves all extremities. No gross deformities. Right knee tender below the knee joint with deep palpation. No erythema or wounds. ROM performed with mild pain. SKIN: Warm, dry, normal color. NEURO: A&O X4. Speech clear. Forgetful on health history PSYCHIATRIC: Normal interaction Results Labs Labs: Short CBC 02/14/25 Range/Units 12:32 WBC 8.1 (4.5-10.0) K/mm3 Hgb 8.2 L (12.0-15.0) g/dL Hct 27.8 L (37.0-47.0) % Plt Count 407 H (150-375) k/mm3 [facility] 02/14/25 12:32 Sodium 137 Potassium 4.4 Chloride 107 Carbon Dioxide 25 BUN 23 H Creatinine 0.92 Glucose 140 H Calcium 9.4 Quality VTE Prophylaxis VTE prophylaxis: mechanical ordered Assessment and Plan Assessment and plan (1) Acute knee pain: Qualifiers: Laterality: right Qualified Code(s): M25.561 - Pain in right knee Code(s): M25.569 - Pain in unspecified knee Status: Acute Assessment and Plan: Patient was right total knee replacement presents with acute onset pain starting 5 days ago. Patient unable to safely ambulate in her assisted living facility at this time. Knee unremarkable on exam. X-ray with no fractures or malalignment. -orthopedic surgery consult -pain control with acetaminophen, oxycodone -PT/OT evaluation -patient will need placement in a different facility due to her increased need for assistance in ADLs (2) Hypertension: Qualifiers: Hypertension type: primary hypertension Qualified Code(s): I10 - Essential (primary) hypertension Code(s): I10 - Essential (primary) hypertension Status: Chronic Assessment and Plan: Patient has a history of hypertension but is not currently on any antihypertensives. Ninety day prescription for 20 mg lisinopril last filled on 10/01/2024. Systolic blood pressure has been consistently in the 180s. -Resume lisinopril at 10mg daily (3) Lumbar compression fracture: Qualifiers: Encounter type: subsequent encounter Fracture healing: with routine healing Lumbar vertebra fracture level: L1 Qualified Code(s): S32.010D - Wedge compression fracture of first lumbar vertebra, subsequent encounter for fracture with routine healing Code(s): S32.000A - Wedge compression fracture of unspecified lumbar vertebra, initial encounter for closed fracture Status: Chronic Assessment and Plan: Patient with history of L1 compression fracture, in April 2023, not recommended for kyphoplasty. Patient completed in home PT/OT and was briefly under the care of pain management. Patient currently not complaining of back pain. (4) Hyperlipidemia: Qualifiers: Hyperlipidemia type: unspecified Qualified Code(s): E78.5 - Hyperlipidemia, unspecified Code(s): E78.5 - Hyperlipidemia, unspecified Status: Chronic Assessment and Plan: Continue simvastatin Plan Diet: Heart healthy GI prophylaxis: NA DVT prophylaxis: SCDs lines/drains: PIV Fluids: NA Code status: Full Prior Studies I have reviewed the following patient records and this information was taken into consideration when formulating the assessment and plan.: previous labs, previous ER visits, previous hospitalizations and previous clinic visits Time Spent with Patient Time with patient: 45 - 74 minutes Hospitalist MIPS Advance Care Plan I have confirmed that the patient's Advanced Care Plan is present, code status is documented, or surrogate decision maker is listed in patient medical record.: Yes Medication Reconciliation I have utilized all available resources to obtain, update and review the patients current medications (includes all prescriptions, OTC, herbals, cannabis, and nutritional supplements).: Yes
[2025-02-14 21:01] VITALS: BMI 23.5
--- NOTE | 2025-02-14 21:01 | ADMGEN ---
This patient, Page Lee, was admitted to [facility] Surg Room 321-. Patient/family oriented to hospital policies and general routines including ID bracelet, bed and alarms, visiting hours, pain management, procedures, bathroom and other care routines, personal items, smoking policy, room service/diet, and visiting hours. Information on how to activate the Rapid Response Team has been discussed. Patient/Family are encouraged to report perceived risks to care and to ask questions if they do not understand what they are told or what they should do.
[2025-02-14 21:49] VITALS: BP 172/54; PULSE 72; RESP 18; TEMP 36.6; O2SAT 100
--- NOTE | 2025-02-14 22:41 | PC.NURSE ---
patient from [facility]. She lives alone, and she is concerned about being able to return to [place].
[2025-02-15 05:45] LABS: Hematocrit 26.5 % (37.0-47.0); Hemoglobin 7.8 g/dL (12.0-15.0); Immature Granulocyte Percent A 0.6 % (0-0.5); Lymphocytes Absolute Auto 0.68 K/mm3 (0.9-3.2); Mean Corpuscular HGB Conc 29.4 g/dl (32-36); Mean Corpuscular Hemoglobin 24.8 pg (26-34); Mean Corpuscular Volume 84.1 fl (80-100); Nucleated Red Blood Cells Absolute Auto 0.000 K/mm3 (0.0-0.012); Nucleated Red Blood Cells Perc 0.0 % (0.0-0.2); Platelet Count Result 404 k/mm3 (150-375); Red Blood Count 3.15 M/mm3 (4.2-5.4); White Blood Count 8.8 K/mm3 (4.5-10.0)
[2025-02-15 06:00] VITALS: BP 152/54; PULSE 66; RESP 17; TEMP 36.4; O2SAT 98
[2025-02-15 06:09] LABS: Anion Gap 5 mmol/L (4-12); Blood Urea Nitrogen 24 mg/dL (7-17); Calcium 9.0 mg/dL (8.4-10.2); Carbon Dioxide 23 mmol/L (22-30); Chloride 106 mmol/L (98-107); Estimated CRCL calculation 44 ml/min; Estimated Glomerular Filt Rate > 60; Glucose 133 mg/dL (65-110); Potassium 4.4 mmol/L (3.4-5.0); Sodium 134 mmol/L (137-145)
[2025-02-15 06:52] LABS: Anisocytosis Occasional; Hypochromasia 2+; Schistocytes None Seen
--- NOTE | 2025-02-15 07:46 | P.PN_ITS ---
Progress Note: A&P Assessment and Plan (1) Acute knee pain: Qualifiers: Laterality: right Qualified Code(s): M25.561 - Pain in right knee Code(s): M25.569 - Pain in unspecified knee Status: Acute Assessment and Plan: Patient with prior right total knee replacement presents with acute onset pain s tarting 5 days ago. - Knee and hip/pelvis xrays with no fractures or malalignment. - SCDs/TEDs - analgesics and antiemetics p.r.n. Tylenol scheduled and oxycodone as needed for break through pain patient has yet to require oxy, if no use by tomorrow consider discontinuing - monitor labs in AM - CBC and BMP - Patient unable to safely ambulate in her assisted living facility at this time. PT/OT evaluation, recommending SNF. Care coordination following. - orthopedic surgery consulted Unlikely to be an infection. Obtain a bone scan to make sure there is nothing else going on (2) Hypertension: Qualifiers: Hypertension type: primary hypertension Qualified Code(s): I10 - Essential (primary) hypertension Code(s): I10 - Essential (primary) hypertension Status: Chronic Assessment and Plan: Patient has a history of hypertension but is not currently on any antihypertensives. Per chart review she received a ninety day prescription for 20 mg lisinopril last filled on 10/01/2024. Systolic blood pressure has been consistently in the 180s. Continue lisinopril at 10mg daily (3) Lumbar compression fracture: Qualifiers: Encounter type: subsequent encounter Fracture healing: with routine healing Lumbar vertebra fracture level: L1 Qualified Code(s): S32.010D - Wedge compression fracture of first lumbar vertebra, subsequent encounter for fracture with routine healing Code(s): S32.000A - Wedge compression fracture of unspecified lumbar vertebra, initial encounter for closed fracture Status: Chronic Assessment and Plan: Patient with history of L1 compression fracture, in April 2023, not r ecommended for kyphoplasty. Patient completed in home PT/OT and was briefly under the care of pain management. Patient currently not complaining of back pain. (4) Hyperlipidemia: Qualifiers: Hyperlipidemia type: unspecified Qualified Code(s): E78.5 - Hyperlipidemia, unspecified Code(s): E78.5 - Hyperlipidemia, unspecified Status: Chronic Assessment and Plan: Continue simvastatin Plan Diet: Heart healthy GI prophylaxis: NA DVT prophylaxis: SCDs lines/drains: PIV Fluids: NA Code status: Lens Cutter Spent With Patient Time with patient: 25 - 35 minutes Subjective Date/time seen: 02/15/25 07:46 Interval history: 79-year-old female with a past medical history of total right knee replacement, left femur fracture, OAB, HTN, COPD, malignant tumor of lung, HLD, colon cancer s/p resection, glaucoma, osteoporosis, CAD s/p stent, L1 compression fracture after a fall presents to the hospital with complaints of right knee pain with inability to bear weight. Patient is pleasant lying comfortably in bed. She continues to endorse pain to the right knee but denies any associated tingling/numbness. She denies any recent trauma to the area. She has no other complaints denying chest pain, palpitations, shortness of breath, nausea/vomiting, and abdominal pain. Review of Systems Review of Systems: All systems reviewed & are unremarkable except as noted in HPI and below Exam Narrative: AF HR 66 RR 17 Spo2 98 BP 152/54 General: female in no acute respiratory distress who is nontoxic appearing, lying semi recumbent in bed. HEENT: Normocephalic. Atraumatic. Extraocular movement intact. Sclera clear and anicteric. No facial asymmetry. Chest: Lungs are clear to auscultation bilaterally. No wheezes or crackles. CV: Heart was regular rate and rhythm. Abd: Abdomen was soft. Nontender. Nondistended. Positive bowel sounds. Ext: No clubbing, cyanosis, or edema. Mild pain with active ROM. Tender to palpation along the medial aspect of the knee. DP pulses bilaterally. Neuro: Patient is alert. Speech is clear. Objective Data Vital Signs Vital Signs: Vital Signs - 24 hr 02/14/25 10:13 02/14/25 19:30 02/14/25 21:49 Temperature 97.5 F L 97.8 F Pulse Rate 72 75 72 Respiratory Rate 16 17 18 Blood Pressure 181/71 H 184/71 H 172/54 H Pulse Oximetry 100 93 100 Oxygen Delivery Room Air 02/14/25 22:53 02/15/25 06:00 Temperature 97.5 F L Pulse Rate 66 Respiratory Rate 17 Blood Pressure 152/54 H Pulse Oximetry 98 Oxygen Delivery Room Air Intake/Output Intake/Output: Intake & Output 02/12/25 02/13/25 02/14/25 02/15/25 23:59 23:59 23:59 23:59 Intake Total 200 Output Total 700 Balance -500 Meds/Results Medications: Active Medications Generic Name Dose Route Start Last Admin Trade Name Freq PRN Reason Stop Dose Admin Acetaminophen 650 mg 02/14/25 21:39 Acetaminophen 325 Mg Tablet PO Q6H PRN Mild Pain (1-3) or Fever Aspirin 81 mg 02/15/25 09:00 Aspirin 81 Mg Enteric Tablet PO DAILY [facility] Lisinopril 10 mg 02/14/25 22:30 02/14/25 22:46 Lisinopril 10 Mg Tablet PO 10 mg DAILY [facility] Administration Oxybutynin Chloride 10 mg 02/15/25 09:00 Oxybutynin Chloride Xl 5 Mg Tab.Er.24 PO DAILY [facility] Oxycodone HCl 5 mg 02/14/25 21:39 Oxycodone Hcl (*Crx) 5 Mg Tab Ir PO Q4H PRN Pain Rated 7-10 Simvastatin 40 mg 02/15/25 09:00 Simvastatin 20 Mg Tablet PO DAILY [facility] Radiology Results: ITS Impressions Knee X-Ray 02/14/25 14:17 Impression: No acute fracture or malalignment. Labs Labs: Laboratory Results - last 24 hr 02/14/25 02/15/25 12:32 05:24 WBC 8.1 8.8 RBC 3.34 L 3.15 L Hgb 8.2 L 7.8 L Hct 27.8 L 26.5 L MCV 83.2 84.1 MCH 24.6 L 24.8 L MCHC 29.5 L 29.4 L RDW 14.6 H 14.7 H Plt Count 407 H 404 H MPV 8.8 9.2 Immature Gran % (Auto) 0.7 H 0.6 H Neut % (Auto) 89.7 H 89.1 H Lymph % (Auto) 7.7 L 7.7 L Mccormick % (Auto) 1.7 L 2.4 L Eos % (Auto) 0.0 0.0 Baso % (Auto) 0.2 0.2 Lymph # (Auto) 0.62 L 0.68 L Mccormick # (Auto) 0.1 0.2 Eos # (Auto) 0.0 0.0 Baso # (Auto) 0.0 0.0 Abs Immat Gran (auto) 0.06 H 0.05 H Absolute Neuts (auto) 7.2 H 7.8 H Absolute Nucleated RBC 0.000 0.000 Band Neutrophils % Not Reportable Not Reportable Nucleated RBC % 0.0 0.0 Platelet Estimate Increased Increased Polychromasia Occasional Hypochromasia 2+ 2+ Anisocytosis 1+ Occasional Ovalocytes Occasional Stomatocytes Occasional Schistocytes None seen None seen Sodium 137 134 L Potassium 4.4 4.4 Chloride 107 106 Carbon Dioxide 25 23 Anion Gap 5 5 BUN 23 H 24 H Creatinine 0.92 0.86 Estim Creat Clear Calc 41 44 Estimated GFR 59 > 60 Glucose 140 H 133 H Calcium 9.4 9.0 Quality VTE Prophylaxis VTE prophylaxis: mechanical ordered
[2025-02-15 10:14] LABS: CRP < 0.5 mg/dL (<1.0)
[2025-02-15] MEDS: SIMVASTATIN 20 MG TABLET 40 MG PO (10:32)
[2025-02-15] MEDS: ASPIRIN 81 MG ENTERIC TABLET PO (10:32)
[2025-02-15] MEDS: oxyBUTYnin CHLORIDE XL 5 MG TAB.ER.24 10 MG PO (10:32)
--- NOTE | 2025-02-15 11:08 | P.CONOP_ITS ---
Assessment and Plan Assessment and plan (1) Knee pain, right: Code(s): M25.561 - Pain in right knee Status: Acute Assessment and Plan: Patient presents knee pain right knee and inability to bear weight. She has had her knee on for many years and has been walking on without difficulty until recently now she can not put any weight on it. She has pain to palpation manipulation and pain with motion. The knee is stable quadriceps strength intact. Hip motion is good. Her x-rays of her hip and knee are unremarkable. The and the knee replacement looks good. Her sed rates her rather CRP is 0.5. This is unlikely to be an infection. Will obtain a bone scan as make sure there is nothing else going on that I can see on x-ray. (2) History of knee replacement procedure of right knee: Code(s): Z96.651 - Presence of right artificial knee joint Status: Acute History of Present Illness HPI Consult date: 02/15/25 Chief complaint: Knee pain S/P RIGHT TKA Review of Systems 2 Musculoskeletal: Musculoskeletal: Reports myalgias, Reports arthralgias, Reports joint swelling and Reports stiffness Neurologic: Reports abnormal gait [facility] Past Medical History Medical History Nondisplaced intertrochanteric fracture of left femur, initial encounter for closed fracture Social History Social History (Updated 05/01/23 @ 11:12 by Yael Multani) Social History: Caffeine-daily Smoking packs per day: 1 Smoking cigarettes per day: 20.0 Years smoked: 40 Smoking pack-years: 40.00 Smoking status: Former smoker Tobacco type: cigarettes Second hand tobacco smoke exposure: No Alcohol intake: current Alcohol use details: seldom Substance use: never Substance use type: does not use Lack of Transportation: No Lack of Food: Never True Current Housing: I Have Housing Concerned About Future Housing: No Difficulty Paying Gas/Electric Bills: No Difficulty Paying for Meds: No Currently Unemployed: No Education: Bachelor's Degree Difficulty w/ Childcare or Family Care: No Spiritual care concerns: No Meds Home Medications and Allergies Home Medications ?Medication ?Instructions ?Recorded ?Confirmed ?Type oxybutynin chloride 10 mg 10 mg PO DAILY #90 tabs 01/1502/14/25 Rx tablet,extended release 24 hr aspirin 81 mg tablet,delayed 81 mg PO DAILY 12/14/23 1 04/17/24 History release simvastatin 40 mg tablet 40 mg PO DAILY 02/27/2304/10 History Allergies Allergy/AdvReac Type Severity Reaction Status Date / Time Sulfa (Sulfonamide Allergy Mild Unknown Verified 02/14/25 22:15 Antibiotics) Vital Signs Vital Signs - 24 hr 02/14/25 19:30 02/14/25 21:49 02/14/25 22:53 Temperature 97.8 F Pulse Rate 75 72 Respiratory Rate 17 18 Blood Pressure 184/71 H 172/54 H Pulse Oximetry 93 100 Oxygen Delivery Room Air 02/15/25 06:00 Temperature 97.5 F L Pulse Rate 66 Respiratory Rate 17 Blood Pressure 152/54 H Pulse Oximetry 98 Oxygen Delivery Exam 2 Narrative: On exam her incision is clean. She has pain with any manipulation of her knee. Her hip moves reasonably well. Neurologically she is intact. 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 Findings: No acute fracture or malalignment. Arthroplasty intact Soft tissues unremarkable. Impression: No acute fracture or malalignment. Reviewed, dictated and finalized at location P. CTION MOLDING SUPERVISOR XRay Report Signed Patient: JesusPage Freire EXAMINATION: XR hip RT 2V w AP pelvis, 02/15/2025 10:00 INJECTION MOLDING SUPERVISOR HISTORY: NO RECENT TRAUMA/UNABLE TO WALK COMPARISON: No comparisons available. Findings: Fixation left femur, the hardware is intact, no acute fracture. Severe degenerative changes. Soft tissues unremarkable. Impression: No acute fracture or malalignment. Reviewed, dictated and finalized at location P. [employer] M[employer] SUPERVISOR 2 Hip/Pelvis X-Ray Today Knee X-Ray 02/14/25 Lumbar Spine X-Ray 05/01/23 Results Labs 02/15/25 05:24 02/15/25 05:24 Labs: Abnormal lab results 02/14/25 02/15/25 Range/Units 12:32 05:24 RBC 3.34 L 3.15 L (4.2-5.4) M/mm3 Hgb 8.2 L 7.8 L (12.0-15.0) g/dL Hct 27.8 L 26.5 L (37.0-47.0) % MCH 24.6 L 24.8 L (26-34) pg MCHC 29.5 L 29.4 L (32-36) g/dl RDW 14.6 H 14.7 H (11.5-14.5) % Plt Count 407 H 404 H (150-375) k/mm3 Immature Gran % (Auto) 0.7 H 0.6 H (0-0.5) % Neut % (Auto) 89.7 H 89.1 H (45.5-73.1) % Lymph % (Auto) 7.7 L 7.7 L (18.3-44.2) % [place] % (Auto) 1.7 L 2.4 L (2.6-8.5) % Lymph # (Auto) 0.62 L 0.68 L (0.9-3.2) K/mm3 Abs Immat Gran (auto) 0.06 H 0.05 H (0.00-0.031) K/mm3 Absolute Neuts (auto) 7.2 H 7.8 H (1.3-6.7) K/mm3 Sodium 134 L (137-145) mmol/L BUN 23 H 24 H (7-17) mg/dL Glucose 140 H 133 H (65-110) mg/dL H & H 02/14/25 02/15/25 Range/Units 12:32 05:24 Hgb 8.2 L 7.8 L (12.0-15.0) g/dL Hct 27.8 L 26.5 L (37.0-47.0) % All other labs normal.
[2025-02-15 14:00] VITALS: PULSE 71; RESP 16; TEMP 36.8; O2SAT 100
[2025-02-15 15:01] VITALS: BP 106/46
[2025-02-15] MEDS: ACETAMINOPHEN 325 MG TABLET 650 MG PO (17:27)
[2025-02-15 19:09] LABS: CRP < 0.5 mg/dL (<1.0)
[2025-02-15 22:00] VITALS: BP 119/49; PULSE 79; RESP 14; TEMP 36.7; O2SAT 97
[2025-02-16] MEDS: ACETAMINOPHEN 325 MG TABLET 650 MG PO ×4 (05:08→23:45)
[2025-02-16 06:00] VITALS: BP 113/49; PULSE 65; RESP 14; TEMP 36.3; O2SAT 97
[2025-02-16 06:30] LABS: Hematocrit 24.4 % (37.0-47.0); Hemoglobin 7.3 g/dL (12.0-15.0); Mean Corpuscular HGB Conc 29.9 g/dl (32-36); Mean Corpuscular Hemoglobin 25.3 pg (26-34); Mean Corpuscular Volume 84.4 fl (80-100); Platelet Count Result 375 k/mm3 (150-375); Red Blood Count 2.89 M/mm3 (4.2-5.4); White Blood Count 7.3 K/mm3 (4.5-10.0)
[2025-02-16 07:09] LABS: Alanine Aminotransferase 12 U/L (6-35); Albumin Level 3.4 g/dL (3.5-5.1); Alkaline Phosphatase 77 U/L (38-126); Anion Gap 4 mmol/L (4-12); Aspartate Amino Transferase 24 U/L (14-36); Bilirubin,Total 0.3 mg/dL (0.2-1.3); Blood Urea Nitrogen 45 mg/dL (7-17); Calcium 8.6 mg/dL (8.4-10.2); Carbon Dioxide 24 mmol/L (22-30); Chloride 104 mmol/L (98-107); Estimated CRCL calculation 33 ml/min; Estimated Glomerular Filt Rate 45; Glucose 92 mg/dL (65-110); Potassium 4.5 mmol/L (3.4-5.0); Sodium 132 mmol/L (137-145); Total Protein 6.7 g/dL (6.3-8.2)
[2025-02-16] MEDS: SIMVASTATIN 20 MG TABLET 40 MG PO (09:14)
[2025-02-16] MEDS: ASPIRIN 81 MG ENTERIC TABLET PO (09:14)
[2025-02-16] MEDS: oxyBUTYnin CHLORIDE XL 5 MG TAB.ER.24 10 MG PO (09:14)
--- NOTE | 2025-02-16 15:06 | P.PNIM_ITS ---
Assessment and Plan Assessment and Plan (1) Acute knee pain: Qualifiers: Laterality: right Qualified Code(s): M25.561 - Pain in right knee Code(s): M25.569 - Pain in unspecified knee Status: Acute Assessment and Plan: Patient with prior right total knee replacement presents with acute onset pain starting 5 days ago. - Knee and hip/pelvis xrays with no fractures or malalignment. - SCDs/TEDs - analgesics and antiemetics p.r.n. Tylenol scheduled and oxycodone as needed for break through pain patient has yet to require oxy, if no use by tomorrow consider discontinuing - monitor labs in AM - CBC and BMP - Patient unable to safely ambulate in her assisted living facility at this time . PT/OT evaluation, recommending SNF. Care coordination following. - orthopedic surgery consulted Unlikely to be an infection. Obtain a bone scan to make sure there is nothing else going on -ortho is consulted (2) Hypertension: Qualifiers: Hypertension type: primary hypertension Qualified Code(s): I10 - Essential (primary) hypertension Code(s): I10 - Essential (primary) hypertension Status: Chronic Assessment and Plan: Patient has a history of hypertension but is not currently on any antihypertensives. Per chart review she received a ninety day prescription for 20 mg lisinopril last filled on 10/01/2024. Systolic blood pressure has been consistently in the 180s. Continue lisinopril at 10mg daily -reviewed and stable (3) Lumbar compression fracture: Qualifiers: Encounter type: subsequent encounter Lumbar vertebra fracture level: L1 Fracture healing: with routine healing Qualified Code(s): S32.010D - Wedge compression fracture of first lumbar vertebra, subsequent encounter for fracture with routine healing Code(s): S32.000A - Wedge compression fracture of unspecified lumbar vertebra, initial encounter for closed fracture Status: Chronic Assessment and Plan: Patient with history of L1 compression fracture, in April 2023, not recommended for kyphoplasty. Patient completed in home PT/OT and was briefly under the care of pain management. Patient currently not complaining of back pain. (4) Hyperlipidemia: Qualifiers: Hyperlipidemia type: unspecified Qualified Code(s): E78.5 - Hyperlipidemia, unspecified Code(s): E78.5 - Hyperlipidemia, unspecified Status: Chronic Assessment and Plan: Continue simvastatin Plan Diet: Heart healthy GI prophylaxis: NA DVT prophylaxis: SCDs lines/drains: PIV Fluids: NA Code status: Full Medical Record Review I have reviewed the following patient records and this information was taken into consideration when formulating the assessment and plan.: previous labs, previous ER visits and previous clinic visits Time Spent With Patient Time with patient: 25 - 35 minutes Subjective Date/time seen: 02/16/25 0900 Interval history: 79-year-old female with a past medical history of total right knee replacement, left femur fracture, OAB, HTN, COPD, malignant tumor of lung, HLD, colon cancer s/p resection, glaucoma, osteoporosis, CAD s/p stent, L1 compression fracture after a fall presents to the hospital with complaints of right knee pain with inability to bear weight. Patient is pleasant lying comfortably in bed. She continues to endorse pain to the right knee. She denies any recent trauma to the area. She has no other complaints denying chest pain, palpitations, shortness of breath, nausea/vom iting, and abdominal pain. Ortho was consulted, awaiting recommendations Review of Systems Review of Systems: All systems reviewed & are unremarkable except as noted in HPI and below Exam Narrative: General: female in no acute respiratory distress who is nontoxic appearing, lying semi recumbent in bed. HEENT: Normocephalic. Atraumatic. Extraocular movement intact. Sclera clear and anicteric. No facial asymmetry. Chest: Lungs are clear to auscultation bilaterally. No wheezes or crackles. CV: Heart was regular rate and rhythm. Abd: Abdomen was soft. Nontender. Nondistended. Positive bowel sounds. Ext: No clubbing, cyanosis, or edema. Mild pain with active ROM. Tender to palpation along the medial aspect of the knee. DP pulses bilaterally. Neuro: Patient is alert. Speech is clear. Objective Data Vital Signs Vital Signs: Vital Signs - 24 hr 02/15/25 22:00 02/16/25 06:00 02/16/25 08:00 Temperature 98.0 F 97.4 F L Pulse Rate 79 65 Respiratory Rate 14 14 Blood Pressure 119/49 L 113/49 L Pulse Oximetry 97 97 Oxygen Delivery Room Air Intake/Output Intake/Output: Intake & Output 02/13/25 02/14/25 02/15/25 02/16/25 23:59 23:59 23:59 23:59 Intake Total 1139 536 Output Total 800 100 Balance 339 436 Meds/Results Medications: Active Medications Generic Name Dose Route Start Last Admin Trade Name Freq PRN Reason Stop Dose Admin Acetaminophen 650 mg 02/15/25 14:00 02/16/25 11:48 Acetaminophen 325 Mg Tablet PO 650 mg Q6HR SCOTT Administration Aspirin 81 mg 02/15/25 09:00 02/16/25 09:14 Aspirin 81 Mg Enteric Tablet PO 81 mg DAILY SCOTT Administration Lisinopril 10 mg 02/14/25 22:30 02/16/25 09:14 Lisinopril 10 Mg Tablet PO 10 mg DAILY SCOTT Administration Oxybutynin Chloride 10 mg 02/15/25 09:00 02/16/25 09:14 Oxybutynin Chloride Xl 5 Mg Tab.Er.24 PO 10 mg DAILY SCOTT Administration Oxycodone HCl 5 mg 02/14/25 21:39 Oxycodone Hcl (*Crx) 5 Mg Tab Ir PO Q4H PRN Pain Rated 7-10 Simvastatin 40 mg 02/15/25 09:00 02/16/25 09:14 Simvastatin 20 Mg Tablet PO 40 mg DAILY SCOTT Administration Radiology Results: ITS Impressions Knee X-Ray 02/14/25 14:17 Impression: No acute fracture or malalignment. Hip/Pelvis X-Ray 02/15/25 10:20 Impression: No acute fracture or malalignment. Bone Scan Nuclear Medicine 02/16/25 12:04 IMPRESSION: 1. Right total knee arthroplasties with increased uptake underlying the lateral tibial plateau where there is increased lucency at the bone cement interface on prior radiographs consistent with osteolysis and loosening. 2. Mild uptake associated with a chronic T12 burst fracture. 3. Small focus of increased uptake at the superomedial left orbital rim region of a small sclerotic bone lesion which remained unchanged in the interval between 2021 and 2023 with no abnormal FDG uptake and favor a benign etiology such as osteoma, fibrous dysplasia or hyperostosis frontalis over metastatic disease. No other lesions suspicious for metastatic disease. Labs Labs: Laboratory Results - last 24 hr 02/15/25 02/16/25 18:24 06:04 WBC 7.3 RBC 2.89 L Hgb 7.3 L Hct 24.4 L MCV 84.4 MCH 25.3 L MCHC 29.9 L RDW 15.0 H Plt Count 375 MPV 9.4 Sodium 132 L Potassium 4.5 Chloride 104 Carbon Dioxide 24 Anion Gap 4 BUN 45 H D Creatinine 1.15 H Estim Creat Clear Calc 33 Estimated GFR 45 L Glucose 92 Calcium 8.6 Total Bilirubin 0.3 AST 24 ALT 12 Alkaline Phosphatase 77 C-Reactive Protein < 0.5 Total Protein 6.7 Albumin 3.4 L Quality VTE Prophylaxis VTE prophylaxis: mechanical ordered
--- NOTE | 2025-02-16 15:09 | PCPTNOTE ---
The patient treatment was not able to be completed this afternoon due to patient out of room for testing. Will plan to continue treatment per plan of care.
--- NOTE | 2025-02-16 15:45 | PM.PNORT ---
Progress Note: A&P Assessment and Plan (1) History of knee replacement procedure of right knee: Code(s): Z96.651 - Presence of right artificial knee joint Status: Acute Assessment and Plan: Painful Total Knee Right. CRP Normal, ESR elevated. Bone scan shows uptake lateral tibial plateau. WIll aspirate knee. (2) Knee pain, right: Code(s): M25.561 - Pain in right knee Status: Acute Subjective Subjective Date/Time Seen: 02/16/25 15:45 Principal diagnosis: Painful Right Total Knee Review of Systems Musculoskeletal: Musculoskeletal: Reports myalgias, Reports arthralgias, Reports joint swelling and Reports stiffness Neurologic: Reports abnormal gait Exam Narrative: On exam her incision is clean. She has pain with any manipulation of her knee. Her hip moves reasonably well. Neurologically she is intact. Objective Data Vital Signs Vital Signs: Vital Signs - 24 hr 02/15/25 22:00 02/16/25 06:00 02/16/25 08:00 Temperature 98.0 F 97.4 F L Pulse Rate 79 65 Respiratory Rate 14 14 Blood Pressure 119/49 L 113/49 L Pulse Oximetry 97 97 Oxygen Delivery Room Air Intake/Output Intake/Output: Intake & Output 02/13/25 02/14/25 02/15/25 02/16/25 23:59 23:59 23:59 23:59 Intake Total 1139 758 Output Total 800 100 Balance 339 658 Meds/Results Medications: Active Medications Generic Name Dose Route Start Last Admin Trade Name Freq PRN Reason Stop Dose Admin Acetaminophen 650 mg 02/15/25 14:00 02/16/25 11:48 Acetaminophen 325 Mg Tablet PO 650 mg Q6HR SCOTT Administration Aspirin 81 mg 02/15/25 09:00 02/16/25 09:14 Aspirin 81 Mg Enteric Tablet PO 81 mg DAILY SCOTT Administration Lisinopril 10 mg 02/14/25 22:30 02/16/25 09:14 Lisinopril 10 Mg Tablet PO 10 mg DAILY SCOTT Administration Oxybutynin Chloride 10 mg 02/15/25 09:00 02/16/25 09:14 Oxybutynin Chloride Xl 5 Mg Tab.Er.24 PO 10 mg DAILY SCOTT Administration Oxycodone HCl 5 mg 02/14/25 21:39 Oxycodone Hcl (*Crx) 5 Mg Tab Ir PO Q4H PRN Pain Rated 7-10 Simvastatin 40 mg 02/15/25 09:00 02/16/25 09:14 Simvastatin 20 Mg Tablet PO 40 mg DAILY SCOTT Administration Radiology Results: ITS Impressions Knee X-Ray 02/14/25 14:17 Impression: No acute fracture or malalignment. Hip/Pelvis X-Ray 02/15/25 10:20 Impression: No acute fracture or malalignment. Bone Scan Nuclear Medicine 02/16/25 12:04 IMPRESSION: 1. Right total knee arthroplasties with increased uptake underlying the lateral tibial plateau where there is increased lucency at the bone cement interface on prior radiographs consistent with osteolysis and loosening. 2. Mild uptake associated with a chronic T12 burst fracture. 3. Small focus of increased uptake at the superomedial left orbital rim region of a small sclerotic bone lesion which remained unchanged in the interval between 2021 and 2023 with no abnormal FDG uptake and favor a benign etiology such as osteoma, fibrous dysplasia or hyperostosis frontalis over metastatic disease. No other lesions suspicious for metastatic disease. Labs Labs: Laboratory Results - last 24 hr 02/15/25 02/16/25 02/16/25 18:24 06:04 14:44 WBC 7.3 RBC 2.89 L Hgb 7.3 L Hct 24.4 L MCV 84.4 MCH 25.3 L MCHC 29.9 L RDW 15.0 H Plt Count 375 MPV 9.4 ESR 67 H Sodium 132 L Potassium 4.5 Chloride 104 Carbon Dioxide 24 Anion Gap 4 BUN 45 H D Creatinine 1.15 H Estim Creat Clear Calc 33 Estimated GFR 45 L Glucose 92 Calcium 8.6 Total Bilirubin 0.3 AST 24 ALT 12 Alkaline Phosphatase 77 C-Reactive Protein < 0.5 Total Protein 6.7 Albumin 3.4 L
[2025-02-16 16:30] VITALS: BP 154/52; PULSE 68; RESP 14; TEMP 36.6; O2SAT 98
[2025-02-16 19:52] VITALS: BP 157/59; PULSE 84; RESP 17; TEMP 36.7; O2SAT 97
[2025-02-17] MEDS: ACETAMINOPHEN 325 MG TABLET 650 MG PO ×2 (05:05→17:36)
[2025-02-17 05:59] VITALS: BP 121/51; PULSE 73; RESP 17; TEMP 36.7; O2SAT 100
[2025-02-17 06:25] LABS: Hematocrit 28.2 % (37.0-47.0); Hemoglobin 8.3 g/dL (12.0-15.0); Mean Corpuscular HGB Conc 29.4 g/dl (32-36); Mean Corpuscular Hemoglobin 24.6 pg (26-34); Mean Corpuscular Volume 83.4 fl (80-100); Platelet Count Result 409 k/mm3 (150-375); Red Blood Count 3.38 M/mm3 (4.2-5.4); White Blood Count 16.1 K/mm3 (4.5-10.0)
[2025-02-17 06:37] LABS: Alanine Aminotransferase 14 U/L (6-35); Albumin Level 3.5 g/dL (3.5-5.1); Alkaline Phosphatase 100 U/L (38-126); Anion Gap 5 mmol/L (4-12); Aspartate Amino Transferase 22 U/L (14-36); Bilirubin,Total 0.4 mg/dL (0.2-1.3); Blood Urea Nitrogen 47 mg/dL (7-17); Calcium 8.9 mg/dL (8.4-10.2); Carbon Dioxide 22 mmol/L (22-30); Chloride 104 mmol/L (98-107); Estimated CRCL calculation 31 ml/min; Estimated Glomerular Filt Rate 42; Glucose 112 mg/dL (65-110); Potassium 4.5 mmol/L (3.4-5.0); Sodium 131 mmol/L (137-145); Total Protein 6.8 g/dL (6.3-8.2)
--- NOTE | 2025-02-17 07:01 | PM.PNORT ---
Progress Note: A&P Assessment and Plan (1) History of knee replacement procedure of right knee: Code(s): Z96.651 - Presence of right artificial knee joint Status: Acute Assessment and Plan: Painful Total Knee Right. CRP Normal, ESR elevated. Bone scan shows uptake lateral tibial plateau. By exam pain seems to be resolving. She may have some mild osteolysis under the lateral tibial plateau but no obvious loosening of the knee replacement. She has excellent motion and really no swelling. Workup for an infected or loose knee is essentially negative. Will see if this will settle down with time. She can walk with a knee immobilizer if the pain is severe. Follow-up in the office in 2 to 3 weeks. (2) Knee pain, right: Code(s): M25.561 - Pain in right knee Status: Acute Subjective Subjective Date/Time Seen: 02/17/25 07:01 Principal diagnosis: Painful right knee status post right total knee arthroplasty Review of Systems Musculoskeletal: Musculoskeletal: Reports myalgias, Reports arthralgias, Reports joint swelling and Reports stiffness Neurologic: Reports abnormal gait Exam Narrative: On exam her incision is clean. She has pain with any manipulation of her knee. Her hip moves reasonably well. Neurologically she is intact. She is only mildly tender to deep palpation over the lateral aspect of the proximal tibia at this time. Objective Data Vital Signs Vital Signs: Vital Signs - 24 hr 02/16/25 08:00 02/16/25 16:30 02/16/25 19:52 Temperature 97.8 F 98.1 F Pulse Rate 68 84 Respiratory Rate 14 17 Blood Pressure 154/52 H 157/59 H Pulse Oximetry 98 97 Oxygen Delivery Room Air 02/16/25 20:00 02/17/25 05:59 Temperature 98.0 F Pulse Rate 73 Respiratory Rate 17 Blood Pressure 121/51 L Pulse Oximetry 100 Oxygen Delivery Room Air Intake/Output Intake/Output: Intake & Output 02/14/25 02/15/25 02/16/25 02/17/25 23:59 23:59 23:59 23:59 Intake Total 1139 980 500 Output Total 800 850 150 Balance 339 130 350 Meds/Results Medications: Active Medications Generic Name Dose Route Start Last Admin Trade Name Freq PRN Reason Stop Dose Admin Acetaminophen 650 mg 02/15/25 14:00 02/17/25 05:05 Acetaminophen 325 Mg Tablet PO 650 mg Q6HR SCOTT Administration Aspirin 81 mg 02/15/25 09:00 02/16/25 09:14 Aspirin 81 Mg Enteric Tablet PO 81 mg DAILY SCOTT Administration Lisinopril 10 mg 02/14/25 22:30 02/16/25 09:14 Lisinopril 10 Mg Tablet PO 10 mg DAILY SCOTT Administration Oxybutynin Chloride 10 mg 02/15/25 09:00 02/16/25 09:14 Oxybutynin Chloride Xl 5 Mg Tab.Er.24 PO 10 mg DAILY SCOTT Administration Oxycodone HCl 5 mg 02/14/25 21:39 Oxycodone Hcl (*Crx) 5 Mg Tab Ir PO Q4H PRN Pain Rated 7-10 Simvastatin 40 mg 02/15/25 09:00 02/16/25 09:14 Simvastatin 20 Mg Tablet PO 40 mg DAILY SCOTT Administration Radiology Results: ITS Impressions Knee X-Ray 02/14/25 14:17 Impression: No acute fracture or malalignment. Hip/Pelvis X-Ray 02/15/25 10:20 Impression: No acute fracture or malalignment. Bone Scan Nuclear Medicine 02/16/25 12:04 IMPRESSION: 1. Right total knee arthroplasties with increased uptake underlying the lateral tibial plateau where there is increased lucency at the bone cement interface on prior radiographs consistent with osteolysis and loosening. 2. Mild uptake associated with a chronic T12 burst fracture. 3. Small focus of increased uptake at the superomedial left orbital rim region of a small sclerotic bone lesion which remained unchanged in the interval between 2021 and 2023 with no abnormal FDG uptake and favor a benign etiology such as osteoma, fibrous dysplasia or hyperostosis frontalis over metastatic disease. No other lesions suspicious for metastatic disease. Joint Aspiration/Injection 02/16/25 16:19 IMPRESSION: 1. No evident joint effusion with unsuccessful attempt at aspiration at 2 separate sites of potential trace amount of fluid. Labs Labs: Laboratory Results - last 24 hr 02/16/25 02/16/25 02/17/25 06:04 14:44 06:09 WBC 16.1 H RBC 3.38 L Hgb 8.3 L Hct 28.2 L MCV 83.4 MCH 24.6 L MCHC 29.4 L RDW 15.1 H Plt Count 409 H MPV 9.4 ESR 67 H Sodium 132 L 131 L Potassium 4.5 4.5 Chloride 104 104 Carbon Dioxide 24 22 Anion Gap 4 5 BUN 45 H D 47 H Creatinine 1.15 H 1.24 H Estim Creat Clear Calc 33 31 Estimated GFR 45 L 42 L Glucose 92 112 H Calcium 8.6 8.9 Total Bilirubin 0.3 0.4 AST 24 22 ALT 12 14 Alkaline Phosphatase 77 100 Total Protein 6.7 6.8 Albumin 3.4 L 3.5
[2025-02-17 07:09] LABS: C-Reactive Protein, Cardiac 0.98 mg/L (0.00-3.00)
[2025-02-17] MEDS: ASPIRIN 81 MG ENTERIC TABLET PO (10:39)
[2025-02-17] MEDS: SIMVASTATIN 20 MG TABLET 40 MG PO (10:39)
[2025-02-17] MEDS: oxyBUTYnin CHLORIDE XL 5 MG TAB.ER.24 10 MG PO (10:39)
--- NOTE | 2025-02-17 11:51 | P.PNIM_ITS ---
Assessment and Plan Assessment and Plan (1) Acute knee pain: Qualifiers: Laterality: right Qualified Code(s): M25.561 - Pain in right knee Code(s): M25.569 - Pain in unspecified knee Status: Acute Assessment and Plan: Patient with prior right total knee replacement presents with acute onset pain starting 5 days ago. - Knee and hip/pelvis xrays with no fractures or malalignment. - SCDs/TEDs - analgesics and antiemetics p.r.n. Tylenol scheduled and oxycodone as needed for break through pain patient has yet to require oxy, if no use by tomorrow consider discontinuing - monitor labs in AM - CBC and BMP - Patient unable to safely ambulate in her assisted living facility at this time . PT/OT evaluation, recommending SNF. Care coordination following. - orthopedic surgery consulted Unlikely to be an infection. Obtain a bone scan to make sure there is nothing else going on -ortho is consulted rt knee aspiration per DR Jalloh yesterday 02/16 area is clean- no erythema noted. no pain ortho notes reviewed: CRP Normal, ESR elevated. Bone scan shows uptake lat eral tibial plateau. By exam pain seems to be resolving. She may have some mild osteolysis under the lateral tibial plateau but no obvious loosening of the knee replacement. She has excellent motion and really no swelling. Workup for an infected or loose knee is essentially negative. Will see if this will settle down with time. She can walk with a knee immobilizer if the pain is severe. Follow-up in the office in 2 to 3 weeks wbc increased to 16.1 today low suspicious for any resp issues as not symptoms will monitor over night and repeat in am ot ensure stable/improvement POA was requesting to discuss plan of care with Dr Jalloh (2) Hypertension: Qualifiers: Hypertension type: primary hypertension Qualified Code(s): I10 - Essential (primary) hypertension Code(s): I10 - Essential (primary) hypertension Status: Chronic Assessment and Plan: Patient has a history of hypertension but is not currently on any antihyp ertensives. Per chart review she received a ninety day prescription for 20 mg lisinopril last filled on 10/01/2024. Systolic blood pressure has been consistently in the 180s. Continue lisinopril at 10mg daily -reviewed and stable (3) Lumbar compression fracture: Qualifiers: Encounter type: subsequent encounter Lumbar vertebra fracture level: L1 Fracture healing: with routine healing Qualified Code(s): S32.010D - Wedge compression fracture of first lumbar vertebra, subsequent encounter for fracture with routine healing Code(s): S32.000A - Wedge compression fracture of unspecified lumbar vertebra, initial encounter for closed fracture Status: Chronic Assessment and Plan: Patient with history of L1 compression fracture, in April 2023, not recommended for kyphoplasty. Patient completed in home PT/OT and was briefly under the care of pain management. Patient currently not complaining of back pain. (4) Hyperlipidemia: Qualifiers: Hyperlipidemia type: unspecified Qualified Code(s): E78.5 - Hyperlipidemia, unspecified Code(s): E78.5 - Hyperlipidemia, unspecified Status: Chronic Assessment and Plan: Continue simvastatin Plan Diet: Heart healthy GI prophylaxis: NA DVT prophylaxis: SCDs lines/drains: PIV Fluids: NA Code status: Full Medical Record Review I have reviewed the following patient records and this information was taken into consideration when formulating the assessment and plan.: previous labs and previous ER visits Time Spent With Patient Time with patient: Greater than 35 minutes Subjective Date/time seen: 02/17/25 11:51 Interval history: 79-year-old female with a past medical history of total right knee replacement, left femur fracture, OAB, HTN, COPD, malignant tumor of lung, HLD, colon cancer s/p resection, glaucoma, osteoporosis, CAD s/p stent, L1 compression fracture after a fall presents to the hospital with complaints of right knee pain with inability to bear weight. Patient is pleasant lying comfortably in bed. She continues to endorse pain to the right knee. She denies any recent trauma to the area. She has no other complaints denying chest pain, palpitations, shortness of breath, nausea/vomiting, and abdominal pain. Ortho was consulted, awaiting recommendations 02/17 aspirated rt knee per DR Jalloh. Plan is for snf for rehab. Pt denies fever, she is very hesitant to do anything for self- needs a lot of encouragement. IT is due to her multiple recent falls per her POA. she denies cough, chest pain, sob, n/v/d. Review of Systems Review of Systems: All systems reviewed & are unremarkable except as noted in HPI and below Exam Narrative: General: female in no acute respiratory distress who is nontoxic appearing, lying semi recumbent in bed. HEENT: Normocephalic. Atraumatic. Extraocular movement intact. Sclera clear and anicteric. No facial asymmetry. Chest: Lungs are clear to auscultation bilaterally. No wheezes or crackles. CV: Heart was regular rate and rhythm. Abd: Abdomen was soft. Nontender. Nondistended. Positive bowel sounds. Ext: No clubbing, cyanosis, or edema. Mild pain with active ROM. Tender to palpation along the medial aspect of the knee. DP pulses bilaterally. Neuro: Patient is alert. Speech is clear. Const: General: comfortable Objective Data Vital Signs Vital Signs: Vital Signs - 24 hr 02/16/25 16:30 02/16/25 19:52 02/16/25 20:00 Temperature 97.8 F 98.1 F Pulse Rate 68 84 Respiratory Rate 14 17 Blood Pressure 154/52 H 157/59 H Pulse Oximetry 98 97 Oxygen Delivery Room Air 02/17/25 05:59 Temperature 98.0 F Pulse Rate 73 Respiratory Rate 17 Blood Pressure 121/51 L Pulse Oximetry 100 Oxygen Delivery Intake/Output Intake/Output: Intake & Output 02/14/25 02/15/25 02/16/25 02/17/25 23:59 23:59 23:59 23:59 Intake Total 1139 980 740 Output Total 800 850 150 Balance 339 130 590 Meds/Results Medications: Active Medications Generic Name Dose Route Start Last Admin Trade Name Freq PRN Reason Stop Dose Admin Acetaminophen 650 mg 02/15/25 14:00 02/17/25 05:05 Acetaminophen 325 Mg Tablet PO 650 mg Q6HR SCOTT Administration Aspirin 81 mg 02/15/25 09:00 02/17/25 10:39 Aspirin 81 Mg Enteric Tablet PO 81 mg DAILY SCOTT Administration Lisinopril 10 mg 02/14/25 22:30 02/17/25 10:39 Lisinopril 10 Mg Tablet PO 10 mg DAILY SCOTT Administration Oxybutynin Chloride 10 mg 02/15/25 09:00 02/17/25 10:39 Oxybutynin Chloride Xl 5 Mg Tab.Er.24 PO 10 mg DAILY SCOTT Administration Oxycodone HCl 5 mg 02/14/25 21:39 Oxycodone Hcl (*Crx) 5 Mg Tab Ir PO Q4H PRN Pain Rated 7-10 Simvastatin 40 mg 02/15/25 09:00 02/17/25 10:39 Simvastatin 20 Mg Tablet PO 40 mg DAILY SCOTT Administration Radiology Results: ITS Impressions Knee X-Ray 02/14/25 14:17 Impression: No acute fracture or malalignment. Hip/Pelvis X-Ray 02/15/25 10:20 Impression: No acute fracture or malalignment. Bone Scan Nuclear Medicine 02/16/25 12:04 IMPRESSION: 1. Right total knee arthroplasties with increased uptake underlying the lateral tibial plateau where there is increased lucency at the bone cement interface on prior radiographs consistent with osteolysis and loosening. 2. Mild uptake associated with a chronic T12 burst fracture. 3. Small focus of increased uptake at the superomedial left orbital rim region of a small sclerotic bone lesion which remained unchanged in the interval between 2021 and 2023 with no abnormal FDG uptake and favor a benign etiology such as osteoma, fibrous dysplasia or hyperostosis frontalis over metastatic disease. No other lesions suspicious for metastatic disease. Joint Aspiration/Injection 02/16/25 16:19 IMPRESSION: 1. No evident joint effusion with unsuccessful attempt at aspiration at 2 separate sites of potential trace amount of fluid. Labs Labs: Laboratory Results - last 24 hr 02/16/25 02/17/25 14:44 06:09 WBC 16.1 H RBC 3.38 L Hgb 8.3 L Hct 28.2 L MCV 83.4 MCH 24.6 L MCHC 29.4 L RDW 15.1 H Plt Count 409 H MPV 9.4 ESR 67 H Sodium 131 L Potassium 4.5 Chloride 104 Carbon Dioxide 22 Anion Gap 5 BUN 47 H Creatinine 1.24 H Estim Creat Clear Calc 31 Estimated GFR 42 L Glucose 112 H Calcium 8.9 Total Bilirubin 0.4 AST 22 ALT 14 Alkaline Phosphatase 100 Cardiac CRP 0.98 Total Protein 6.8 Albumin 3.5 Quality VTE Prophylaxis VTE prophylaxis: mechanical ordered
[2025-02-17 14:00] VITALS: BP 124/43; PULSE 84; RESP 16; TEMP 36.7; O2SAT 94
[2025-02-17 21:26] VITALS: BP 114/41; PULSE 79; RESP 20; TEMP 37; O2SAT 99
[2025-02-18 05:16] VITALS: BP 124/43; PULSE 64; RESP 20; TEMP 36.6; O2SAT 98
[2025-02-18] MEDS: ACETAMINOPHEN 325 MG TABLET 650 MG PO ×2 (06:11→11:19)
[2025-02-18 07:24] LABS: Hematocrit 27.4 % (37.0-47.0); Hemoglobin 8.0 g/dL (12.0-15.0); Mean Corpuscular HGB Conc 29.2 g/dl (32-36); Mean Corpuscular Hemoglobin 24.3 pg (26-34); Mean Corpuscular Volume 83.3 fl (80-100); Platelet Count Result 393 k/mm3 (150-375); Red Blood Count 3.29 M/mm3 (4.2-5.4); White Blood Count 10.7 K/mm3 (4.5-10.0)
[2025-02-18 07:53] LABS: Alanine Aminotransferase 12 U/L (6-35); Albumin Level 3.7 g/dL (3.5-5.1); Alkaline Phosphatase 101 U/L (38-126); Anion Gap 6 mmol/L (4-12); Aspartate Amino Transferase 29 U/L (14-36); Bilirubin,Total 0.4 mg/dL (0.2-1.3); Blood Urea Nitrogen 45 mg/dL (7-17); Calcium 8.9 mg/dL (8.4-10.2); Carbon Dioxide 22 mmol/L (22-30); Chloride 105 mmol/L (98-107); Estimated CRCL calculation 34 ml/min; Estimated Glomerular Filt Rate 47; Glucose 101 mg/dL (65-110); Potassium 4.5 mmol/L (3.4-5.0); Sodium 133 mmol/L (137-145); Total Protein 7.3 g/dL (6.3-8.2)
[2025-02-18] MEDS: oxyBUTYnin CHLORIDE XL 5 MG TAB.ER.24 10 MG PO (09:36)
[2025-02-18] MEDS: SIMVASTATIN 20 MG TABLET 40 MG PO (09:38)
[2025-02-18] MEDS: ASPIRIN 81 MG ENTERIC TABLET PO (09:39)
--- NOTE | 2025-02-18 09:39 | P.DS_ITS ---
DS: Admitting Diagnosis Discharge Date 02/18 Admitting Diagnosis knee pain DS: Discharge Diagnosis Discharge Diagnosis (1) Acute knee pain: Qualifiers: Laterality: right Qualified Code(s): M25.561 - Pain in right knee Code(s): M25.569 - Pain in unspecified knee Status: Acute (2) Hypertension: Qualifiers: Hypertension type: primary hypertension Qualified Code(s): I10 - Essential (primary) hypertension Code(s): I10 - Essential (primary) hypertension Status: Chronic (3) Lumbar compression fracture: Qualifiers: Encounter type: subsequent encounter Fracture healing: with routine healing Lumbar vertebra fracture level: L1 Qualified Code(s): S32.010D - Wedge compression fracture of first lumbar vertebra, subsequent encounter for fracture with routine healing Code(s): S32.000A - Wedge compression fracture of unspecified lumbar vertebra, initial encounter for closed fracture Status: Chronic (4) Hyperlipidemia: Qualifiers: Hyperlipidemia type: unspecified Qualified Code(s): E78.5 - Hyperlipidemia, unspecified Code(s): E78.5 - Hyperlipidemia, unspecified Status: Chronic DS: Summary Hospital Course Hospital Course: 79-year-old female with a past medical history of total right knee replacement, left femur fracture, OAB, HTN, COPD, malignant tumor of lung, HLD, colon cancer s/p resection, glaucoma, osteoporosis, CAD s/p stent, L1 compression fracture after a fall presents to the hospital with complaints of right knee pain with inability to bear weight. Knee and hip/pelvis xrays with no fractures or malalignment. - SCDs/TEDs - analgesics and antiemetics p.r.n. Tylenol scheduled and oxycodone as needed for break through pain Ortho, DR Jalloh was consulted. Notes reviewed: CRP Normal, ESR elevated. PT/OT ordered. Bone scan shows uptake lateral tibial plateau. Knee was aspirated. She may have some mild osteolysis under the lateral tibial plateau but no obvious loosening of the knee replacement. She has excellent motion and really no swelling. Workup for an infected or loose knee is essentially negative. Will see if this will settle down with time. She can walk with a knee immobilizer if the pain is severe. Follow-up in the office in 2 to 3 weeks Status at Discharge Functional status at discharge: uses cane/walker Overall status at discharge: patient is progressing back to baseline Time Spent with Patient Time attestation: Total time spent providing and/or coordinating discharge services: Time spent: Greater than 30 minutes Exam Narrative: General: female in no acute respiratory distress who is nontoxic appearing, lying semi recumbent in bed. HEENT: Normocephalic. Atraumatic. Extraocular movement intact. Sclera clear and anicteric. No facial asymmetry. Chest: Lungs are clear to auscultation bilaterally. No wheezes or crackles. CV: Heart was regular rate and rhythm. Abd: Abdomen was soft. Nontender. Nondistended. Positive bowel sounds. Ext: No clubbing, cyanosis, or edema. Mild pain with active ROM. Tender to palpation along the medial aspect of the knee. DP pulses bilaterally. Neuro: Patient is alert. Speech is clear. Const: General: comfortable DS: Data Data Completed and Pending Labs on day of discharge: Labs from last 24 hours 02/18/25 06:55 WBC 10.7 H RBC 3.29 L Hgb 8.0 L Hct 27.4 L MCV 83.3 MCH 24.3 L MCHC 29.2 L RDW 15.2 H Plt Count 393 H MPV 9.2 Sodium 133 L Potassium 4.5 Chloride 105 Carbon Dioxide 22 Anion Gap 6 BUN 45 H Creatinine 1.12 H Estim Creat Clear Calc 34 Estimated GFR 47 L Glucose 101 Calcium 8.9 Total Bilirubin 0.4 AST 29 ALT 12 Alkaline Phosphatase 101 Total Protein 7.3 Albumin 3.7 Discharge Plan Discharge Attending physician on discharge: Marques Lyman Consulting providers: Rachell Bhandari; Dereck Jalloh Discharging Clinician: Kera Lambert Patient Disposition: SNF Activity: july shower Diet: heart healthy Discharge Instructions: rt knee pain. aspirated per DR Jalloh. Workup for an infected or loose knee is essentially negative. You can walk with a knee immobilizer if the pain is severe. Follow-up in the office in 2 to [address] Jalloh Patient Instructions: Aspirin (By mouth) Patient Language: Beninese Stand Alone Forms: General Discharge Information Follow-up/Referrals: Dereck Jalloh MD [Physician, Orthopedics] - 2 Weeks Carmelo,Perico Olguin MD [Primary Care Provider, Unknown] - 2 Weeks Discharge Medications: New acetaminophen 325 mg Tablet 650 mg PO Q6HR Qty: 12 0RF oxycodone 5 mg Tablet 2.5 mg PO Q4H PRN (Reason: Pain Rated 7-10) Qty: 12 0RF lisinopril 10 mg Tablet 10 mg PO DAILY Qty: 14 0RF Continued simvastatin 40 mg tablet 40 mg PO DAILY aspirin 81 mg tablet,delayed release (DR/EC) 81 mg PO DAILY oxybutynin chloride 10 mg tablet extended release 24hr 10 mg PO DAILY Qty: 90 1RF Date of admission: 02/14/25 17:32 Primary Care Provider: Carmelo,Perico Olguin Admitting Provider: Morgan Cali Oca Attending physician on admission: Morgan Cali Oca Condition: Stable Quality VTE Prophylaxis VTE prophylaxis: mechanical ordered Hospitalist MIPS Heart Failure (Exclusion) Patient has history of Heart Transplant or Left Ventricular Assistive Device?: No IF YES, STOP HERE Heart Failure (Qualifier) Patient has current or prior documentation of LVEF less than or equal to 40%, or mod/servere depressed LVSF?: No IF NO, STOP HERE
[2025-02-18 10:11] VITALS: O2SAT 100
[2025-02-18] MEDS: oxyCODONE HCL (*CRX) 2.5 MG TAB IR PO (11:25)
[2025-02-18 14:00] VITALS: BP 118/53; PULSE 64; RESP 20; TEMP 36.7; O2SAT 97
== END 2025-02-18 14:40 ==
LOC: ANHED 17:35 → ANH3MEDSUR 23:29
PROVIDERS: Nurse Practitioner Adult Health; Orthopaedic Surgery; Student in an Organized Health Care Education/Training Program; Admitting Provider Student in an Organized Health Care Education/Training Program; Emergency Provider Emergency Medicine; PCP Internal Medicine; Visit Provider Family Medicine
DX: M25.561 Pain in right knee (principal); I10 Essential (primary) hypertension; E78.5 Hyperlipidemia, unspecified; S32.010D Wedge compression fracture of first lumbar vertebra, subsequent encounter for fracture with routine healing; J44.9 Chronic obstructive pulmonary disease, unspecified; M81.0 Age-related osteoporosis without current pathological fracture; I25.10 Atherosclerotic heart disease of native coronary artery without angina pectoris; H40.9 Unspecified glaucoma; Z79.82 Long term (current) use of aspirin; Z96.651 Presence of right artificial knee joint; Z95.5 Presence of coronary angioplasty implant and graft; Z85.038 Personal history of other malignant neoplasm of large intestine; Z85.118 Personal history of other malignant neoplasm of bronchus and lung; Z87.81 Personal history of (healed) traumatic fracture; Z87.448 Personal history of other diseases of urinary system
CPT/HCPCS: 20611; 36415; 73502; 73562; 78306; 80048; 80053; 85025; 85027; 85652; 86140; 86141; 96374; 97110; 97161; 97165; 97530; 97535; 99285; A9270; A9503; G0378; J1885; J7512; L1830